=== PATIENT | female | born 1975 | race Caucasian/White ===

== ENCOUNTER 2021-03-28 04:43 | Inpatient (IN) ==
[2021-03-28 05:49] LABS: Basophils % 0.2 %; Hematocrit 40.9 % (35.3-44.9); Hemoglobin 13.5 g/dL (11.5-15.4); Immature Granulocytes % 0.6 % (0-4); Lymphocytes # 0.8 K/mcL (0.6-4.6); Lymphocytes % 17.2 %; Mean Corpuscular Hemoglobin 30.9 pg (28.0-33.3); Mean Corpuscular Volume 93.6 fL (83.0-100.0); Monocytes # 0.4 K/mcL (0.0-1.3); Monocytes % 8.8 %; Neutrophils # 3.6 K/mcL (1.6-8.9); Platelet Count 186 K/mcL (140-400); Red Blood Count 4.37 M/mcL (3.82-4.97); Segmented Neutrophils % 73.2 %; White Blood Count 4.9 K/mcL (4.3-11.1)
[2021-03-28 06:04] LABS: BUN/Creatinine Ratio 13 (6-26); Blood Urea Nitrogen 12 mg/dL (6-20); Carbon Dioxide 24 mEq/L (23-29); Chloride 102 mEq/L (98-107); Glucose 124 mg/dL (70-105); Osmolality,Calculated 287 (280-300); Potassium 3.3 mEq/L (3.5-5.1); Sodium 138 mEq/L (136-145); eGFR For African Americans > 60 (> 60); eGFR For Non-African Americans > 60 (> 60)
[2021-03-28 06:05] LABS: Troponin I < 0.03 ng/mL (< 0.04)
[2021-03-28] MEDS ORDERED: Ondansetron 4 MG/2 ML VIAL IVP PRN (07:49)
[2021-03-28] MEDS ORDERED: Acetaminophen 325 MG TABLET PO PRN (07:49)
[2021-03-28] MEDS ORDERED: Naloxone 0.4 MG/ML INJ IVP PRN (07:49)
[2021-03-28] MEDS ORDERED: Dextrose Gel 15 GM/37.5 ML TUBE PO PRN ×2 (08:54)
[2021-03-28] MEDS ORDERED: D5% in Water 1,000 ML IVC PRN (08:54)
[2021-03-28] MEDS ORDERED: *HR* Dextrose 50 % in Water (Syg) 50 ML SYRINGE IVP PRN (08:54)
[2021-03-28] MEDS ORDERED: Furosemide 40 MG/4 ML VIAL IVP SCH (09:00)
[2021-03-28 09:45] LABS: Albumin 3.8 g/dL (3.5-5.7); Albumin/Globulin Ratio 1.1 (1.1-2.2); Bilirubin,Direct 0.1 mg/dL (0.0-0.2); Bilirubin,Indirect 0.3 mg/dL (0.0-1.0); Bilirubin,Total 0.4 mg/dL (0.3-1.0); Globulin 3.6 g/dL (2.4-3.5); Total Protein 7.4 g/dL (6.4-8.9)
[2021-03-28] MEDS: Loratadine 10 MG TABLET PO SCH (10:20)
[2021-03-28] MEDS: Dexamethasone Sodium Phos/PF 10 MG/ML VIAL IVP SCH (10:21)
[2021-03-28] MEDS: Cholecalciferol (D-3) 1,000 UNIT (25MCG) TABLET PO SCH (10:40)
[2021-03-28] MEDS: Ipratropium 1 PUFF INHALER IH SCH ×3 (11:34→20:13)
[2021-03-28] MEDS: Insulin LISPRO 300 UNITS/3 ML VIAL SUBQ SCH ×3 (14:52→21:36)
[2021-03-28] MEDS ORDERED: Remdesivir 200 MG in 0.9 % Sodium Chloride 100 ML IVPB ONE (16:00)
[2021-03-28] MEDS ORDERED: tiZANidine 4 MG TABLET PO SCH (21:00)
[2021-03-29] MEDS ORDERED: 0.9 % Sodium Chloride 250 ML IVC ONE ×2 (01:20→04:01)
[2021-03-29] MEDS: Ipratropium 1 PUFF INHALER IH SCH ×4 (03:31→21:28)
[2021-03-29 05:14] LABS: Basophils % 0.3 %; Hemoglobin 12.9 g/dL (11.5-15.4); Immature Granulocytes % 0.8 % (0-4); Lymphocytes # 0.6 K/mcL (0.6-4.6); Lymphocytes % 16.4 %; Mean Corpuscular HGB Conc 33.1 g/dL (31.6-35.5); Mean Corpuscular Hemoglobin 31.4 pg (28.0-33.3); Mean Corpuscular Volume 94.9 fL (83.0-100.0); Mean Platelet Volume 10.6 fL (9.4-12.4); Monocytes # 0.4 K/mcL (0.0-1.3); Monocytes % 11.4 %; Neutrophils # 2.6 K/mcL (1.6-8.9); Platelet Count 205 K/mcL (140-400); Red Blood Count 4.11 M/mcL (3.82-4.97); Red Cell Distribution Width 12.4 % (11.5-14.5); Segmented Neutrophils % 71.1 %; White Blood Count 3.6 K/mcL (4.3-11.1)
[2021-03-29 05:27] LABS: Calcium 8.4 mg/dL (8.6-10.3); Magnesium 2.4 mg/dL (1.6-2.6); Potassium 3.8 mEq/L (3.5-5.1)
[2021-03-29 05:29] LABS: Albumin 3.9 g/dL (3.5-5.7); Albumin/Globulin Ratio 1.2 (1.1-2.2); Bilirubin,Direct 0.1 mg/dL (0.0-0.2); Bilirubin,Indirect 0.2 mg/dL (0.0-1.0); Bilirubin,Total 0.3 mg/dL (0.3-1.0); Globulin 3.2 g/dL (2.4-3.5); Total Protein 7.1 g/dL (6.4-8.9)
[2021-03-29 06:12] LABS: Estimated Average Glucose 140 mg/dl; Hemoglobin A1C 6.5 %
[2021-03-29] MEDS ORDERED: Pantoprazole 40 MG VIAL IVP SCH (09:00)
[2021-03-29] MEDS: *HR* Enoxaparin 40 MG/0.4 ML SYRINGE SQ SCH (10:39)
[2021-03-29] MEDS: Dexamethasone Sodium Phos/PF 10 MG/ML VIAL IVP SCH (10:40)
[2021-03-29] MEDS: Cholecalciferol (D-3) 1,000 UNIT (25MCG) TABLET PO SCH (10:40)
[2021-03-29] MEDS: BuPROPion XL (24 HR) 150 MG TABLET PO SCH (10:40)
[2021-03-29] MEDS: Ascorbic Acid 500 MG TABLET PO SCH (10:40)
[2021-03-29] MEDS: Loratadine 10 MG TABLET PO SCH (10:40)
[2021-03-29] MEDS: Insulin LISPRO 300 UNITS/3 ML VIAL SUBQ SCH ×4 (10:41→20:54)
[2021-03-29] MEDS ORDERED: Remdesivir 100 MG in 0.9 % Sodium Chloride 100 ML IVPB SCH (12:00)
[2021-03-29] MEDS: Famotidine 20 MG TABLET PO SCH (21:03)
[2021-03-30] MEDS: Ipratropium 1 PUFF INHALER IH SCH ×4 (03:39→20:58)
[2021-03-30 06:14] LABS: Albumin 4.1 g/dL (3.5-5.7); Albumin/Globulin Ratio 1.1 (1.1-2.2); Bilirubin,Direct 0.1 mg/dL (0.0-0.2); Bilirubin,Indirect 0.4 mg/dL (0.0-1.0); Bilirubin,Total 0.5 mg/dL (0.3-1.0); Globulin 3.7 g/dL (2.4-3.5); Total Protein 7.8 g/dL (6.4-8.9)
[2021-03-30] MEDS: Insulin LISPRO 300 UNITS/3 ML VIAL SUBQ SCH ×5 (08:06→21:19)
[2021-03-30] MEDS: *HR* Enoxaparin 40 MG/0.4 ML SYRINGE SQ SCH (08:10)
[2021-03-30] MEDS: Ascorbic Acid 500 MG TABLET PO SCH (08:11)
[2021-03-30] MEDS: BuPROPion XL (24 HR) 150 MG TABLET PO SCH (08:11)
[2021-03-30] MEDS: Dexamethasone Sodium Phos/PF 10 MG/ML VIAL IVP SCH (08:11)
[2021-03-30] MEDS: Famotidine 20 MG TABLET PO SCH ×2 (08:11→21:20)
[2021-03-30] MEDS: Cholecalciferol (D-3) 1,000 UNIT (25MCG) TABLET PO SCH (08:12)
[2021-03-30 10:19] LABS: Basophils % 0.1 %; Hematocrit 40.6 % (35.3-44.9); Hemoglobin 13.6 g/dL (11.5-15.4); Immature Granulocytes % 0.7 % (0-4); Lymphocytes # 0.4 K/mcL (0.6-4.6); Lymphocytes % 3.9 %; Mean Corpuscular HGB Conc 33.5 g/dL (31.6-35.5); Mean Corpuscular Hemoglobin 31.2 pg (28.0-33.3); Mean Corpuscular Volume 93.1 fL (83.0-100.0); Mean Platelet Volume 10.1 fL (9.4-12.4); Monocytes # 0.8 K/mcL (0.0-1.3); Monocytes % 6.7 %; Platelet Count 291 K/mcL (140-400); Red Blood Count 4.36 M/mcL (3.82-4.97); Red Cell Distribution Width 12.4 % (11.5-14.5); Segmented Neutrophils % 88.6 %; White Blood Count 11.3 K/mcL (4.3-11.1)
[2021-03-30 10:30] LABS: Fibrinogen 627 mg/dL (169-393)
[2021-03-30 10:31] LABS: D-Dimer 688 ng/mLFEU (0-500)
[2021-03-30 10:37] LABS: BUN/Creatinine Ratio 28 (6-26); Blood Urea Nitrogen 32 mg/dL (6-20); Carbon Dioxide 25 mEq/L (23-29); Chloride 104 mEq/L (98-107); Glucose 147 mg/dL (70-105); Osmolality,Calculated 304 (280-300); Potassium 3.5 mEq/L (3.5-5.1); Sodium 142 mEq/L (136-145); eGFR For African Americans > 60 (> 60); eGFR For Non-African Americans 51 (> 60)
[2021-03-30] MEDS ORDERED: *HR* LORazepam 0.5 MG TABLET PO PRN (11:53)
[2021-03-30] MEDS ORDERED: Ringers Solution, Lactated 1,000 ML IVC SCH ×2 (12:00→12:15)
[2021-03-30] MEDS ORDERED: Isovue-370 500 ML BOTTLE IVP ONE (12:02)
[2021-03-30] MEDS ORDERED: *HR* Metoprolol 5 MG/5 ML VIAL IVP PRN (20:32)
[2021-03-30] MEDS: tiZANidine 4 MG TABLET PO SCH (21:48)
[2021-03-31] MEDS: Ipratropium 1 PUFF INHALER IH SCH ×7 (05:00→23:25)
[2021-03-31 07:58] LABS: ABG Base Excess 2 mEq/L (-2 to 3); ABG HCO3 26 mEq/L (21-27); ABG Oxygen Saturation 94 % (95-98); ABG PCO2 38 mmHg (35-45); ABG PH 7.44 pH Units (7.32-7.45); ABG PO2 68 mmHg (85-104); ABG TCO2 27 mEq/L (20-26)
[2021-03-31] MEDS: Insulin LISPRO 300 UNITS/3 ML VIAL SUBQ SCH ×4 (08:19→21:23)
[2021-03-31] MEDS: *HR* Enoxaparin 40 MG/0.4 ML SYRINGE SQ SCH (08:24)
[2021-03-31] MEDS: Cholecalciferol (D-3) 1,000 UNIT (25MCG) TABLET PO SCH (08:24)
[2021-03-31] MEDS: Dexamethasone Sodium Phos/PF 10 MG/ML VIAL IVP SCH (08:24)
[2021-03-31] MEDS: Ascorbic Acid 500 MG TABLET PO SCH (08:24)
[2021-03-31] MEDS: Famotidine 20 MG TABLET PO SCH ×2 (08:25→21:23)
[2021-03-31] MEDS: BuPROPion XL (24 HR) 150 MG TABLET PO SCH (08:25)
[2021-03-31] MEDS: *HR* LORazepam 0.5 MG TABLET PO PRN ×2 (08:45→18:04)
[2021-03-31 12:35] LABS: Basophils % 0.1 %; Hematocrit 40.1 % (35.3-44.9); Immature Granulocytes % 0.7 % (0-4); Lymphocytes # 0.4 K/mcL (0.6-4.6); Lymphocytes % 2.7 %; Mean Corpuscular HGB Conc 32.4 g/dL (31.6-35.5); Mean Corpuscular Hemoglobin 30.9 pg (28.0-33.3); Mean Corpuscular Volume 95.2 fL (83.0-100.0); Mean Platelet Volume 9.9 fL (9.4-12.4); Monocytes # 0.6 K/mcL (0.0-1.3); Monocytes % 4.2 %; Neutrophils # 12.8 K/mcL (1.6-8.9); Platelet Count 283 K/mcL (140-400); Red Blood Count 4.21 M/mcL (3.82-4.97); Red Cell Distribution Width 12.7 % (11.5-14.5); Segmented Neutrophils % 92.3 %
[2021-03-31 12:37] LABS: White Blood Count 13.9 K/mcL (4.3-11.1)
[2021-03-31 12:51] LABS: Alanine Aminotransferase 12 Units/L (7-52); Albumin 3.7 g/dL (3.5-5.7); Alkaline Phosphatase 44 Units/L (34-104); Aspartate Amino Transferase 23 Units/L (13-39); BUN/Creatinine Ratio 31 (6-26); Bilirubin,Direct 0.1 mg/dL (0.0-0.2); Bilirubin,Indirect 0.3 mg/dL (0.0-1.0); Bilirubin,Total 0.4 mg/dL (0.3-1.0); Blood Urea Nitrogen 28 mg/dL (6-20); Calcium 8.8 mg/dL (8.6-10.3); Carbon Dioxide 26 mEq/L (23-29); Chloride 106 mEq/L (98-107); Globulin 3.7 g/dL (2.4-3.5); Glucose 154 mg/dL (70-105); Osmolality,Calculated 305 (280-300); Potassium 3.8 mEq/L (3.5-5.1); Sodium 143 mEq/L (136-145); Total Protein 7.4 g/dL (6.4-8.9); eGFR For African Americans > 60 (> 60); eGFR For Non-African Americans > 60 (> 60)
[2021-03-31] MEDS: Furosemide 20 MG/2 ML VIAL IVP SCH (15:36)
[2021-03-31 16:30] LABS: Ferritin 344 ng/mL (10-120)
[2021-03-31] MEDS: tiZANidine 4 MG TABLET PO SCH (21:23)
[2021-04-01 04:03] LABS: Basophils % 0.2 %; Hematocrit 36.5 % (35.3-44.9); Hemoglobin 12.2 g/dL (11.5-15.4); Immature Granulocytes % 0.8 % (0-4); Lymphocytes # 0.5 K/mcL (0.6-4.6); Lymphocytes % 4.1 %; Mean Corpuscular HGB Conc 33.4 g/dL (31.6-35.5); Mean Corpuscular Hemoglobin 31.9 pg (28.0-33.3); Mean Corpuscular Volume 95.3 fL (83.0-100.0); Mean Platelet Volume 9.7 fL (9.4-12.4); Monocytes # 0.5 K/mcL (0.0-1.3); Monocytes % 4.3 %; Neutrophils # 10.7 K/mcL (1.6-8.9); Platelet Count 287 K/mcL (140-400); Red Blood Count 3.83 M/mcL (3.82-4.97); Red Cell Distribution Width 12.4 % (11.5-14.5); Segmented Neutrophils % 90.6 %; White Blood Count 11.8 K/mcL (4.3-11.1)
[2021-04-01] MEDS: Ipratropium 1 PUFF INHALER IH SCH ×6 (04:11→23:06)
[2021-04-01 04:23] LABS: Alanine Aminotransferase 11 Units/L (7-52); Albumin 3.4 g/dL (3.5-5.7); Alkaline Phosphatase 42 Units/L (34-104); Aspartate Amino Transferase 17 Units/L (13-39); BUN/Creatinine Ratio 31 (6-26); Bilirubin,Total 0.4 mg/dL (0.3-1.0); Blood Urea Nitrogen 27 mg/dL (6-20); Calcium 8.7 mg/dL (8.6-10.3); Carbon Dioxide 28 mEq/L (23-29); Chloride 106 mEq/L (98-107); Globulin 3.3 g/dL (2.4-3.5); Glucose 172 mg/dL (70-105); Osmolality,Calculated 305 (280-300); Potassium 3.7 mEq/L (3.5-5.1); Sodium 143 mEq/L (136-145); Total Protein 6.7 g/dL (6.4-8.9); eGFR For African Americans > 60 (> 60); eGFR For Non-African Americans > 60 (> 60)
[2021-04-01] MEDS: *HR* Enoxaparin 40 MG/0.4 ML SYRINGE SQ SCH (05:21)
[2021-04-01] MEDS: Insulin LISPRO 300 UNITS/3 ML VIAL SUBQ SCH ×4 (09:36→20:58)
[2021-04-01] MEDS: Dexamethasone Sodium Phos/PF 10 MG/ML VIAL IVP SCH (09:38)
[2021-04-01] MEDS: Furosemide 20 MG/2 ML VIAL IVP SCH (09:38)
[2021-04-01] MEDS: Famotidine 20 MG TABLET PO SCH ×2 (09:39→21:14)
[2021-04-01] MEDS: Cholecalciferol (D-3) 1,000 UNIT (25MCG) TABLET PO SCH (09:39)
[2021-04-01] MEDS: Ascorbic Acid 500 MG TABLET PO SCH (09:39)
[2021-04-01] MEDS: BuPROPion XL (24 HR) 150 MG TABLET PO SCH (09:39)
[2021-04-01] MEDS: GuaiFENesin/Codeine Oral Soln 5 ML UDC PO PRN ×2 (14:29→21:14)
[2021-04-01] MEDS ORDERED: Dexmedetomidine HCl 400 MCG/100 ML MLS IVC SCH (15:15)
[2021-04-01] MEDS ORDERED: Benzonatate 100 MG CAPSULE PO PRN (15:57)
[2021-04-01] MEDS ORDERED: Morphine Sulfate 2 MG/ML SYRINGE IVP ONE ×2 (17:21→22:40)
[2021-04-01] MEDS: tiZANidine 4 MG TABLET PO PRN (21:13)
[2021-04-02 02:14] LABS: Basophils % 0.2 %; Hematocrit 37.8 % (35.3-44.9); Hemoglobin 12.4 g/dL (11.5-15.4); Lymphocytes # 0.5 K/mcL (0.6-4.6); Lymphocytes % 4.8 %; Mean Corpuscular HGB Conc 32.8 g/dL (31.6-35.5); Mean Corpuscular Hemoglobin 31.6 pg (28.0-33.3); Mean Corpuscular Volume 96.2 fL (83.0-100.0); Mean Platelet Volume 9.7 fL (9.4-12.4); Monocytes # 0.6 K/mcL (0.0-1.3); Monocytes % 5.2 %; Neutrophils # 9.9 K/mcL (1.6-8.9); Platelet Count 355 K/mcL (140-400); Red Blood Count 3.93 M/mcL (3.82-4.97); Red Cell Distribution Width 12.1 % (11.5-14.5); Segmented Neutrophils % 88.8 %; White Blood Count 11.1 K/mcL (4.3-11.1)
[2021-04-02 02:23] LABS: Fibrinogen 594 mg/dL (169-393)
[2021-04-02 02:24] LABS: D-Dimer 716 ng/mLFEU (0-500)
[2021-04-02 02:31] LABS: BUN/Creatinine Ratio 34 (6-26); Blood Urea Nitrogen 26 mg/dL (6-20); C-Reactive Protein 27 mg/L (Less than 10); Calcium 8.8 mg/dL (8.6-10.3); Carbon Dioxide 28 mEq/L (23-29); Chloride 105 mEq/L (98-107); Glucose 144 mg/dL (70-105); Osmolality,Calculated 301 (280-300); Potassium 3.6 mEq/L (3.5-5.1); Sodium 142 mEq/L (136-145); eGFR For African Americans > 60 (> 60); eGFR For Non-African Americans > 60 (> 60)
[2021-04-02] MEDS: Ipratropium 1 PUFF INHALER IH SCH ×5 (03:24→19:59)
[2021-04-02] MEDS: Insulin LISPRO 300 UNITS/3 ML VIAL SUBQ SCH ×4 (09:38→19:39)
[2021-04-02] MEDS: Dexamethasone Sodium Phos/PF 10 MG/ML VIAL IVP SCH (09:48)
[2021-04-02] MEDS: Furosemide 20 MG/2 ML VIAL IVP SCH (09:48)
[2021-04-02] MEDS: BuPROPion XL (24 HR) 150 MG TABLET PO SCH (09:49)
[2021-04-02] MEDS: Ascorbic Acid 500 MG TABLET PO SCH (09:49)
[2021-04-02] MEDS: *HR* Enoxaparin 40 MG/0.4 ML SYRINGE SQ SCH (09:49)
[2021-04-02] MEDS: Famotidine 20 MG TABLET PO SCH ×2 (09:49→19:51)
[2021-04-02] MEDS: Cholecalciferol (D-3) 1,000 UNIT (25MCG) TABLET PO SCH (09:49)
[2021-04-02] MEDS: Dexmedetomidine HCl 400 MCG/100 ML MLS IVC SCH ×2 (10:01→16:40)
[2021-04-02] MEDS ORDERED: Lidocaine -MPF 1% 5 ML AMPUL INFILT ONE (10:50)
[2021-04-03] MEDS: Ipratropium 1 PUFF INHALER IH SCH ×7 (00:14→23:47)
[2021-04-03] MEDS: Dexmedetomidine HCl 400 MCG/100 ML MLS IVC SCH ×2 (04:22→18:07)
[2021-04-03 04:29] LABS: Basophils % 0.1 %; Hematocrit 38.9 % (35.3-44.9); Hemoglobin 12.6 g/dL (11.5-15.4); Immature Granulocytes % 1.1 % (0-4); Lymphocytes # 0.5 K/mcL (0.6-4.6); Lymphocytes % 4.4 %; Mean Corpuscular HGB Conc 32.4 g/dL (31.6-35.5); Mean Corpuscular Volume 95.6 fL (83.0-100.0); Mean Platelet Volume 9.6 fL (9.4-12.4); Monocytes # 0.7 K/mcL (0.0-1.3); Monocytes % 5.7 %; Neutrophils # 10.1 K/mcL (1.6-8.9); Platelet Count 387 K/mcL (140-400); Red Blood Count 4.07 M/mcL (3.82-4.97); Red Cell Distribution Width 12.1 % (11.5-14.5); Segmented Neutrophils % 88.7 %; White Blood Count 11.4 K/mcL (4.3-11.1)
[2021-04-03 04:37] LABS: Fibrinogen 594 mg/dL (169-393)
[2021-04-03 04:39] LABS: D-Dimer 747 ng/mLFEU (0-500)
[2021-04-03 04:50] LABS: Alanine Aminotransferase 10 Units/L (7-52); Albumin 3.5 g/dL (3.5-5.7); Alkaline Phosphatase 40 Units/L (34-104); Aspartate Amino Transferase 11 Units/L (13-39); BUN/Creatinine Ratio 38 (6-26); Bilirubin,Total 0.5 mg/dL (0.3-1.0); Blood Urea Nitrogen 33 mg/dL (6-20); Carbon Dioxide 30 mEq/L (23-29); Chloride 104 mEq/L (98-107); Globulin 3.6 g/dL (2.4-3.5); Glucose 153 mg/dL (70-105); Osmolality,Calculated 308 (280-300); Potassium 3.9 mEq/L (3.5-5.1); Sodium 144 mEq/L (136-145); Total Protein 7.1 g/dL (6.4-8.9); eGFR For African Americans > 60 (> 60); eGFR For Non-African Americans > 60 (> 60)
[2021-04-03] MEDS: Insulin LISPRO 300 UNITS/3 ML VIAL SUBQ SCH ×4 (07:54→21:21)
[2021-04-03] MEDS: Cholecalciferol (D-3) 1,000 UNIT (25MCG) TABLET PO SCH (07:57)
[2021-04-03] MEDS: BuPROPion XL (24 HR) 150 MG TABLET PO SCH (07:57)
[2021-04-03] MEDS: Ascorbic Acid 500 MG TABLET PO SCH (07:58)
[2021-04-03] MEDS: Famotidine 20 MG TABLET PO SCH (07:58)
[2021-04-03] MEDS: Dexamethasone Sodium Phos/PF 10 MG/ML VIAL IVP SCH (07:59)
[2021-04-03] MEDS: *HR* Enoxaparin 40 MG/0.4 ML SYRINGE SQ SCH (08:00)
[2021-04-03] MEDS: Furosemide 20 MG/2 ML VIAL IVP SCH (08:00)
[2021-04-03] MEDS ORDERED: *HR* Heparin 5,000 UNIT/ML VIAL IVP PRN ×2 (17:28)
[2021-04-03] MEDS ORDERED: *HR* Heparin 5,000 UNIT/ML VIAL IVP ONE (17:28)
[2021-04-03] MEDS: tiZANidine 4 MG TABLET PO PRN (19:50)
[2021-04-03] MEDS: GuaiFENesin/Codeine Oral Soln 5 ML UDC PO PRN (21:21)
[2021-04-04] MEDS: Ipratropium 1 PUFF INHALER IH SCH ×5 (04:04→19:55)
[2021-04-04 05:26] LABS: Basophils % 0.2 %; Hematocrit 38.9 % (35.3-44.9); Hemoglobin 12.9 g/dL (11.5-15.4); Lymphocytes # 0.6 K/mcL (0.6-4.6); Lymphocytes % 4.1 %; Mean Corpuscular HGB Conc 33.2 g/dL (31.6-35.5); Mean Corpuscular Hemoglobin 31.2 pg (28.0-33.3); Mean Corpuscular Volume 94.2 fL (83.0-100.0); Monocytes # 0.9 K/mcL (0.0-1.3); Monocytes % 6.6 %; Neutrophils # 12.6 K/mcL (1.6-8.9); Platelet Count 460 K/mcL (140-400); Red Blood Count 4.13 M/mcL (3.82-4.97); Red Cell Distribution Width 11.7 % (11.5-14.5); Segmented Neutrophils % 88.1 %; White Blood Count 14.3 K/mcL (4.3-11.1)
[2021-04-04 05:46] LABS: BUN/Creatinine Ratio 41 (6-26); Blood Urea Nitrogen 31 mg/dL (6-20); Carbon Dioxide 32 mEq/L (23-29); Chloride 101 mEq/L (98-107); Glucose 117 mg/dL (70-105); Osmolality,Calculated 304 (280-300); Potassium 3.4 mEq/L (3.5-5.1); Sodium 143 mEq/L (136-145); eGFR For African Americans > 60 (> 60); eGFR For Non-African Americans > 60 (> 60)
[2021-04-04] MEDS ORDERED: *HR* Enoxaparin 40 MG/0.4 ML SYRINGE SQ SCH (06:00)
[2021-04-04] MEDS: Insulin LISPRO 300 UNITS/3 ML VIAL SUBQ SCH ×4 (07:53→21:04)
[2021-04-04] MEDS: Furosemide 20 MG/2 ML VIAL IVP SCH ×2 (07:53→10:22)
[2021-04-04] MEDS: Dexamethasone Sodium Phos/PF 10 MG/ML VIAL IVP SCH (07:53)
[2021-04-04] MEDS: BuPROPion XL (24 HR) 150 MG TABLET PO SCH ×2 (07:54→10:23)
[2021-04-04] MEDS ORDERED: *HR* Dextrose 50 % in Water (Syg) 50 ML SYRINGE IVP PRN (08:55)
[2021-04-04] MEDS ORDERED: Acetaminophen 325 MG TABLET PO PRN (08:55)
[2021-04-04] MEDS ORDERED: D5% in Water 1,000 ML IVC PRN (08:55)
[2021-04-04] MEDS ORDERED: Dextrose Gel 15 GM/37.5 ML TUBE PO PRN ×2 (08:55)
[2021-04-04] MEDS ORDERED: Naloxone 0.4 MG/ML INJ IVP PRN (08:55)
[2021-04-04] MEDS ORDERED: Pantoprazole 40 MG VIAL IVP SCH (09:00)
[2021-04-04] MEDS ORDERED: Dexamethasone Sodium Phos/PF 10 MG/ML VIAL IVP SCH (09:00)
[2021-04-04] MEDS ORDERED: Cholecalciferol (D-3) 1,000 UNIT (25MCG) TABLET PO SCH (09:00)
[2021-04-04] MEDS: Cholecalciferol (D-3) 1,000 UNIT (25MCG) TABLET PO SCH (10:23)
[2021-04-04] MEDS: Pantoprazole 40 MG VIAL IVP SCH (10:23)
[2021-04-04] MEDS: GuaiFENesin/Codeine Oral Soln 5 ML UDC PO PRN ×2 (12:29→21:03)
[2021-04-04] MEDS: Dexmedetomidine HCl 400 MCG/100 ML MLS IVC SCH ×2 (14:59→15:00)
[2021-04-04] MEDS: *HR* LORazepam 0.5 MG TABLET PO PRN (21:03)
[2021-04-04] MEDS: Benzonatate 100 MG CAPSULE PO PRN (21:06)
[2021-04-04] MEDS: tiZANidine 4 MG TABLET PO PRN (21:06)
[2021-04-05] MEDS: Ipratropium 1 PUFF INHALER IH SCH ×7 (00:33→23:28)
[2021-04-05 05:19] LABS: VBG Ionized Calcium 1.18 mmol/L (1.15-1.35)
[2021-04-05 05:24] LABS: Alanine Aminotransferase 8 Units/L (7-52); Albumin 3.2 g/dL (3.5-5.7); Albumin/Globulin Ratio 0.9 (1.1-2.2); Alkaline Phosphatase 36 Units/L (34-104); Aspartate Amino Transferase 10 Units/L (13-39); Bilirubin,Direct 0.1 mg/dL (0.0-0.2); Bilirubin,Indirect 0.5 mg/dL (0.0-1.0); Bilirubin,Total 0.6 mg/dL (0.3-1.0); C-Reactive Protein 22 mg/L (Less than 10); Globulin 3.4 g/dL (2.4-3.5); Magnesium 2.2 mg/dL (1.6-2.6); Phosphorous 3.2 mg/dL (2.7-4.5); Total Protein 6.6 g/dL (6.4-8.9)
[2021-04-05] MEDS: *HR* Enoxaparin 40 MG/0.4 ML SYRINGE SQ SCH (06:15)
[2021-04-05 07:55] LABS: BUN/Creatinine Ratio 36 (6-26); Blood Urea Nitrogen 26 mg/dL (6-20); Calcium 8.8 mg/dL (8.6-10.3); Carbon Dioxide 31 mEq/L (23-29); Chloride 100 mEq/L (98-107); Glucose 116 mg/dL (70-105); Osmolality,Calculated 298 (280-300); Potassium 3.4 mEq/L (3.5-5.1); Sodium 141 mEq/L (136-145); eGFR For African Americans > 60 (> 60); eGFR For Non-African Americans > 60 (> 60)
[2021-04-05 08:07] LABS: Basophils % 0.2 %; Eosinophils % 0.1 %; Hematocrit 39.7 % (35.3-44.9); Hemoglobin 13.2 g/dL (11.5-15.4); Immature Granulocytes % 1.3 % (0-4); Lymphocytes # 0.6 K/mcL (0.6-4.6); Lymphocytes % 4.1 %; Mean Corpuscular HGB Conc 33.2 g/dL (31.6-35.5); Mean Corpuscular Hemoglobin 30.9 pg (28.0-33.3); Mean Platelet Volume 9.8 fL (9.4-12.4); Monocytes # 0.7 K/mcL (0.0-1.3); Monocytes % 4.3 %; Neutrophils # 13.5 K/mcL (1.6-8.9); Platelet Count 484 K/mcL (140-400); Red Blood Count 4.27 M/mcL (3.82-4.97); Red Cell Distribution Width 11.8 % (11.5-14.5)
[2021-04-05] MEDS: Dexmedetomidine HCl 400 MCG/100 ML MLS IVC SCH ×2 (08:22→17:16)
[2021-04-05] MEDS: Insulin LISPRO 300 UNITS/3 ML VIAL SUBQ SCH ×4 (08:22→19:56)
[2021-04-05] MEDS: Pantoprazole 40 MG VIAL IVP SCH (08:50)
[2021-04-05] MEDS: Dexamethasone Sodium Phos/PF 10 MG/ML VIAL IVP SCH (08:51)
[2021-04-05] MEDS: BuPROPion XL (24 HR) 150 MG TABLET PO SCH (08:51)
[2021-04-05] MEDS: Cholecalciferol (D-3) 1,000 UNIT (25MCG) TABLET PO SCH (08:51)
[2021-04-05] MEDS: Furosemide 20 MG/2 ML VIAL IVP SCH (08:52)
[2021-04-05] MEDS ORDERED: Dexamethasone Sodium Phos/PF 10 MG/ML VIAL IVP SCH (09:00)
[2021-04-05] MEDS: GuaiFENesin/Codeine Oral Soln 5 ML UDC PO PRN (19:55)
[2021-04-05] MEDS: tiZANidine 4 MG TABLET PO PRN (19:56)
[2021-04-06] MEDS: Ipratropium 1 PUFF INHALER IH SCH ×5 (04:45→21:32)
[2021-04-06] MEDS: Dexmedetomidine HCl 400 MCG/100 ML MLS IVC SCH ×2 (04:54→15:37)
[2021-04-06] MEDS: *HR* Enoxaparin 40 MG/0.4 ML SYRINGE SQ SCH (04:55)
[2021-04-06 05:33] LABS: VBG Ionized Calcium 1.12 mmol/L (1.15-1.35)
[2021-04-06 05:36] LABS: Basophils % 0.2 %; Eosinophils % 0.1 %; Hematocrit 40.8 % (35.3-44.9); Hemoglobin 13.8 g/dL (11.5-15.4); Immature Granulocytes % 1.3 % (0-4); Lymphocytes # 0.6 K/mcL (0.6-4.6); Lymphocytes % 3.7 %; Mean Corpuscular HGB Conc 33.8 g/dL (31.6-35.5); Mean Corpuscular Hemoglobin 31.5 pg (28.0-33.3); Mean Corpuscular Volume 93.2 fL (83.0-100.0); Mean Platelet Volume 10.1 fL (9.4-12.4); Monocytes # 0.5 K/mcL (0.0-1.3); Monocytes % 3.6 %; Neutrophils # 13.8 K/mcL (1.6-8.9); Platelet Count 456 K/mcL (140-400); Red Blood Count 4.38 M/mcL (3.82-4.97); Red Cell Distribution Width 11.7 % (11.5-14.5); Segmented Neutrophils % 91.1 %; White Blood Count 15.2 K/mcL (4.3-11.1)
[2021-04-06 05:44] LABS: Albumin 3.3 g/dL (3.5-5.7); Albumin/Globulin Ratio 0.9 (1.1-2.2); Bilirubin,Direct 0.1 mg/dL (0.0-0.2); Bilirubin,Indirect 0.5 mg/dL (0.0-1.0); Bilirubin,Total 0.6 mg/dL (0.3-1.0); Globulin 3.6 g/dL (2.4-3.5); Magnesium 2.2 mg/dL (1.6-2.6); Phosphorous 3.2 mg/dL (2.7-4.5); Total Protein 6.9 g/dL (6.4-8.9)
[2021-04-06 05:46] LABS: BUN/Creatinine Ratio 32 (6-26); Blood Urea Nitrogen 25 mg/dL (6-20); Calcium 8.8 mg/dL (8.6-10.3); Carbon Dioxide 33 mEq/L (23-29); Chloride 97 mEq/L (98-107); Glucose 116 mg/dL (70-105); Osmolality,Calculated 293 (280-300); Potassium 3.4 mEq/L (3.5-5.1); Sodium 139 mEq/L (136-145); eGFR For African Americans > 60 (> 60); eGFR For Non-African Americans > 60 (> 60)
[2021-04-06] MEDS: Insulin LISPRO 300 UNITS/3 ML VIAL SUBQ SCH ×4 (08:46→22:04)
[2021-04-06] MEDS: Furosemide 20 MG/2 ML VIAL IVP SCH (08:49)
[2021-04-06] MEDS: BuPROPion XL (24 HR) 150 MG TABLET PO SCH (08:50)
[2021-04-06] MEDS: Cholecalciferol (D-3) 1,000 UNIT (25MCG) TABLET PO SCH (08:50)
[2021-04-06] MEDS: Dexamethasone Sodium Phos/PF 10 MG/ML VIAL IVP SCH (08:50)
[2021-04-06] MEDS: Pantoprazole 40 MG VIAL IVP SCH (08:50)
[2021-04-06] MEDS: GuaiFENesin/Codeine Oral Soln 5 ML UDC PO PRN ×2 (08:51→21:44)
[2021-04-06] MEDS ORDERED: Potassium Chloride Elixir 20 MEQ/15 ML UDC PO ONE (10:44)
[2021-04-06] MEDS: *HR* Enoxaparin 60 MG/0.6 ML SYRINGE SQ SCH (21:43)
[2021-04-06] MEDS: tiZANidine 4 MG TABLET PO PRN (21:43)
[2021-04-07] MEDS: Ipratropium 1 PUFF INHALER IH SCH ×7 (00:05→23:13)
[2021-04-07] MEDS: Dexmedetomidine HCl 400 MCG/100 ML MLS IVC SCH ×4 (00:39→20:37)
[2021-04-07 04:41] LABS: Basophils % 0.2 %; Eosinophils # 0.1 K/mcL (0.0-0.6); Eosinophils % 0.3 %; Hematocrit 41.4 % (35.3-44.9); Hemoglobin 13.5 g/dL (11.5-15.4); Immature Granulocytes % 1.2 % (0-4); Lymphocytes # 0.8 K/mcL (0.6-4.6); Lymphocytes % 4.8 %; Mean Corpuscular HGB Conc 32.6 g/dL (31.6-35.5); Mean Corpuscular Hemoglobin 30.5 pg (28.0-33.3); Mean Corpuscular Volume 93.7 fL (83.0-100.0); Monocytes # 0.5 K/mcL (0.0-1.3); Platelet Count 323 K/mcL (140-400); Red Blood Count 4.42 M/mcL (3.82-4.97); Red Cell Distribution Width 11.7 % (11.5-14.5); Segmented Neutrophils % 90.5 %; White Blood Count 16.5 K/mcL (4.3-11.1)
[2021-04-07 04:46] LABS: VBG Ionized Calcium 1.12 mmol/L (1.15-1.35)
[2021-04-07 05:24] LABS: BUN/Creatinine Ratio 31 (6-26); Blood Urea Nitrogen 22 mg/dL (6-20); Calcium 8.5 mg/dL (8.6-10.3); Carbon Dioxide 32 mEq/L (23-29); Chloride 97 mEq/L (98-107); Glucose 120 mg/dL (70-105); Osmolality,Calculated 291 (280-300); Potassium 3.7 mEq/L (3.5-5.1); Sodium 138 mEq/L (136-145); eGFR For African Americans > 60 (> 60); eGFR For Non-African Americans > 60 (> 60)
[2021-04-07 06:47] LABS: Alanine Aminotransferase 9 Units/L (7-52); Albumin 3.2 g/dL (3.5-5.7); Albumin/Globulin Ratio 0.9 (1.1-2.2); Alkaline Phosphatase 43 Units/L (34-104); Aspartate Amino Transferase 16 Units/L (13-39); Bilirubin,Direct 0.1 mg/dL (0.0-0.2); Bilirubin,Indirect 0.5 mg/dL (0.0-1.0); Bilirubin,Total 0.6 mg/dL (0.3-1.0); Globulin 3.5 g/dL (2.4-3.5); Magnesium 2.2 mg/dL (1.6-2.6); Phosphorous 2.9 mg/dL (2.7-4.5); Total Protein 6.7 g/dL (6.4-8.9)
[2021-04-07] MEDS: Dexamethasone Sodium Phos/PF 10 MG/ML VIAL IVP SCH (07:51)
[2021-04-07] MEDS: Cholecalciferol (D-3) 1,000 UNIT (25MCG) TABLET PO SCH (07:55)
[2021-04-07] MEDS: Furosemide 40 MG/4 ML VIAL IVP SCH (07:55)
[2021-04-07] MEDS: BuPROPion XL (24 HR) 150 MG TABLET PO SCH (07:55)
[2021-04-07] MEDS: *HR* Enoxaparin 60 MG/0.6 ML SYRINGE SQ SCH ×2 (07:56→20:31)
[2021-04-07] MEDS: Pantoprazole 40 MG VIAL IVP SCH (07:57)
[2021-04-07] MEDS: Insulin LISPRO 300 UNITS/3 ML VIAL SUBQ SCH ×4 (08:14→20:32)
[2021-04-07 11:28] LABS: C-Reactive Protein 85 mg/L (Less than 10)
[2021-04-07] MEDS: GuaiFENesin/Codeine Oral Soln 5 ML UDC PO PRN ×2 (14:39→20:31)
[2021-04-07] MEDS: tiZANidine 4 MG TABLET PO PRN (20:31)
[2021-04-08] MEDS: Dexmedetomidine HCl 400 MCG/100 ML MLS IVC SCH ×5 (01:09→21:10)
[2021-04-08] MEDS: Ipratropium 1 PUFF INHALER IH SCH ×4 (03:39→20:33)
[2021-04-08] MEDS: Insulin LISPRO 300 UNITS/3 ML VIAL SUBQ SCH ×4 (07:37→20:21)
[2021-04-08] MEDS: Pantoprazole 40 MG VIAL IVP SCH (07:59)
[2021-04-08] MEDS: Furosemide 40 MG/4 ML VIAL IVP SCH (07:59)
[2021-04-08] MEDS: Dexamethasone Sodium Phos/PF 10 MG/ML VIAL IVP SCH (07:59)
[2021-04-08] MEDS: *HR* Enoxaparin 60 MG/0.6 ML SYRINGE SQ SCH ×2 (07:59→20:25)
[2021-04-08] MEDS: BuPROPion XL (24 HR) 150 MG TABLET PO SCH ×2 (08:00→08:49)
[2021-04-08] MEDS: Cholecalciferol (D-3) 1,000 UNIT (25MCG) TABLET PO SCH ×2 (08:00→08:49)
[2021-04-08 08:28] LABS: Basophils % 0.2 %; Eosinophils # 0.1 K/mcL (0.0-0.6); Eosinophils % 0.6 %; Hematocrit 40.7 % (35.3-44.9); Immature Granulocytes % 0.9 % (0-4); Lymphocytes # 0.8 K/mcL (0.6-4.6); Lymphocytes % 4.4 %; Mean Corpuscular HGB Conc 34.4 g/dL (31.6-35.5); Mean Corpuscular Hemoglobin 31.6 pg (28.0-33.3); Mean Corpuscular Volume 91.9 fL (83.0-100.0); Mean Platelet Volume 10.3 fL (9.4-12.4); Monocytes # 0.6 K/mcL (0.0-1.3); Monocytes % 3.5 %; Neutrophils # 16.3 K/mcL (1.6-8.9); Platelet Count 322 K/mcL (140-400); Red Blood Count 4.43 M/mcL (3.82-4.97); Red Cell Distribution Width 11.8 % (11.5-14.5); Segmented Neutrophils % 90.4 %
[2021-04-08 08:50] LABS: Alanine Aminotransferase 9 Units/L (7-52); Albumin 3.3 g/dL (3.5-5.7); Albumin/Globulin Ratio 0.9 (1.1-2.2); Alkaline Phosphatase 47 Units/L (34-104); Aspartate Amino Transferase 16 Units/L (13-39); BUN/Creatinine Ratio 27 (6-26); Bilirubin,Direct 0.1 mg/dL (0.0-0.2); Bilirubin,Indirect 0.4 mg/dL (0.0-1.0); Bilirubin,Total 0.5 mg/dL (0.3-1.0); Blood Urea Nitrogen 19 mg/dL (6-20); Calcium 9.1 mg/dL (8.6-10.3); Carbon Dioxide 31 mEq/L (23-29); Chloride 94 mEq/L (98-107); Globulin 3.6 g/dL (2.4-3.5); Glucose 130 mg/dL (70-105); Magnesium 2.1 mg/dL (1.6-2.6); Osmolality,Calculated 284 (280-300); Phosphorous 3.6 mg/dL (2.7-4.5); Potassium 3.5 mEq/L (3.5-5.1); Sodium 135 mEq/L (136-145); Total Protein 6.9 g/dL (6.4-8.9); eGFR For African Americans > 60 (> 60); eGFR For Non-African Americans > 60 (> 60)
[2021-04-08 13:10] LABS: C-Reactive Protein 81 mg/L (Less than 10)
[2021-04-08] MEDS: tiZANidine 4 MG TABLET PO PRN (20:25)
[2021-04-08] MEDS: GuaiFENesin/Codeine Oral Soln 5 ML UDC PO PRN (20:25)
[2021-04-09] MEDS: Dexmedetomidine HCl 400 MCG/100 ML MLS IVC SCH ×4 (02:18→21:18)
[2021-04-09 03:45] LABS: Basophils % 0.1 %; Eosinophils % 0.1 %; Hematocrit 41.2 % (35.3-44.9); Hemoglobin 13.8 g/dL (11.5-15.4); Immature Granulocytes % 0.9 % (0-4); Lymphocytes # 0.7 K/mcL (0.6-4.6); Lymphocytes % 4.4 %; Mean Corpuscular HGB Conc 33.5 g/dL (31.6-35.5); Mean Corpuscular Hemoglobin 30.9 pg (28.0-33.3); Mean Corpuscular Volume 92.4 fL (83.0-100.0); Mean Platelet Volume 10.5 fL (9.4-12.4); Monocytes # 0.6 K/mcL (0.0-1.3); Monocytes % 3.4 %; Neutrophils # 14.6 K/mcL (1.6-8.9); Platelet Count 311 K/mcL (140-400); Red Blood Count 4.46 M/mcL (3.82-4.97); Red Cell Distribution Width 11.7 % (11.5-14.5); Segmented Neutrophils % 91.1 %
[2021-04-09 03:47] LABS: VBG Ionized Calcium 1.13 mmol/L (1.15-1.35)
[2021-04-09] MEDS: Ipratropium 1 PUFF INHALER IH SCH ×4 (04:11→19:48)
[2021-04-09 04:14] LABS: Albumin 3.2 g/dL (3.5-5.7); Albumin/Globulin Ratio 0.9 (1.1-2.2); Bilirubin,Direct 0.1 mg/dL (0.0-0.2); Bilirubin,Indirect 0.4 mg/dL (0.0-1.0); Bilirubin,Total 0.5 mg/dL (0.3-1.0); Globulin 3.6 g/dL (2.4-3.5); Magnesium 2.2 mg/dL (1.6-2.6); Phosphorous 3.9 mg/dL (2.7-4.5); Total Protein 6.8 g/dL (6.4-8.9)
[2021-04-09 04:16] LABS: BUN/Creatinine Ratio 34 (6-26); Blood Urea Nitrogen 23 mg/dL (6-20); Calcium 9.1 mg/dL (8.6-10.3); Carbon Dioxide 32 mEq/L (23-29); Chloride 95 mEq/L (98-107); Glucose 127 mg/dL (70-105); Osmolality,Calculated 289 (280-300); Potassium 3.6 mEq/L (3.5-5.1); Sodium 137 mEq/L (136-145); eGFR For African Americans > 60 (> 60); eGFR For Non-African Americans > 60 (> 60)
[2021-04-09] MEDS: Insulin LISPRO 300 UNITS/3 ML VIAL SUBQ SCH ×4 (08:43→20:22)
[2021-04-09] MEDS: Cholecalciferol (D-3) 1,000 UNIT (25MCG) TABLET PO SCH (08:54)
[2021-04-09] MEDS: BuPROPion XL (24 HR) 150 MG TABLET PO SCH (08:54)
[2021-04-09] MEDS: *HR* Enoxaparin 60 MG/0.6 ML SYRINGE SQ SCH ×2 (08:54→20:21)
[2021-04-09] MEDS: Dexamethasone Sodium Phos/PF 10 MG/ML VIAL IVP SCH (08:55)
[2021-04-09] MEDS: Pantoprazole 40 MG VIAL IVP SCH (08:56)
[2021-04-09] MEDS: Furosemide 40 MG/4 ML VIAL IVP SCH (08:56)
[2021-04-09] MEDS: GuaiFENesin/Codeine Oral Soln 5 ML UDC PO PRN ×2 (10:48→20:35)
[2021-04-09] MEDS ORDERED: Perflutren Lipid Microsphere 1.3 ML in 0.9 % Sodium Chloride 8.7 ML IVP PRN (16:12)
[2021-04-09] MEDS: Calcium Gluconate 1gm/50mL 1 GM/50 ML BAG IVPB SCH ×2 (17:24→18:36)
[2021-04-10] MEDS: Dexmedetomidine HCl 400 MCG/100 ML MLS IVC SCH ×4 (01:06→20:05)
[2021-04-10] MEDS: Ipratropium 1 PUFF INHALER IH SCH ×4 (04:04→21:53)
[2021-04-10 04:16] LABS: VBG Ionized Calcium 1.15 mmol/L (1.15-1.35)
[2021-04-10 04:19] LABS: Basophils % 0.2 %; Eosinophils % 0.1 %; Hemoglobin 13.5 g/dL (11.5-15.4); Immature Granulocytes % 0.9 % (0-4); Lymphocytes # 0.9 K/mcL (0.6-4.6); Lymphocytes % 4.4 %; Mean Corpuscular HGB Conc 33.8 g/dL (31.6-35.5); Mean Corpuscular Hemoglobin 31.6 pg (28.0-33.3); Mean Corpuscular Volume 93.7 fL (83.0-100.0); Monocytes # 0.9 K/mcL (0.0-1.3); Monocytes % 4.6 %; Neutrophils # 17.8 K/mcL (1.6-8.9); Platelet Count 334 K/mcL (140-400); Red Blood Count 4.27 M/mcL (3.82-4.97); Red Cell Distribution Width 11.9 % (11.5-14.5); Segmented Neutrophils % 89.8 %; White Blood Count 19.9 K/mcL (4.3-11.1)
[2021-04-10 04:26] LABS: BUN/Creatinine Ratio 34 (6-26); Blood Urea Nitrogen 27 mg/dL (6-20); Calcium 8.8 mg/dL (8.6-10.3); Carbon Dioxide 31 mEq/L (23-29); Chloride 97 mEq/L (98-107); Glucose 120 mg/dL (70-105); Osmolality,Calculated 290 (280-300); Potassium 3.7 mEq/L (3.5-5.1); Sodium 137 mEq/L (136-145); eGFR For African Americans > 60 (> 60); eGFR For Non-African Americans > 60 (> 60)
[2021-04-10 04:29] LABS: Albumin 3.1 g/dL (3.5-5.7); Albumin/Globulin Ratio 0.9 (1.1-2.2); Bilirubin,Direct 0.1 mg/dL (0.0-0.2); Bilirubin,Indirect 0.4 mg/dL (0.0-1.0); Bilirubin,Total 0.5 mg/dL (0.3-1.0); Globulin 3.4 g/dL (2.4-3.5); Phosphorous 2.9 mg/dL (2.7-4.5); Total Protein 6.5 g/dL (6.4-8.9)
[2021-04-10] MEDS: *HR* Enoxaparin 60 MG/0.6 ML SYRINGE SQ SCH ×2 (09:00→20:15)
[2021-04-10] MEDS: Pantoprazole 40 MG VIAL IVP SCH (09:01)
[2021-04-10] MEDS: Furosemide 40 MG/4 ML VIAL IVP SCH (09:01)
[2021-04-10] MEDS: BuPROPion XL (24 HR) 150 MG TABLET PO SCH (09:02)
[2021-04-10] MEDS: Cholecalciferol (D-3) 1,000 UNIT (25MCG) TABLET PO SCH (09:02)
[2021-04-10] MEDS: Insulin LISPRO 300 UNITS/3 ML VIAL SUBQ SCH ×4 (09:21→20:09)
[2021-04-10] MEDS: *HR* LORazepam 0.5 MG TABLET PO PRN ×2 (12:01→20:15)
[2021-04-10] MEDS: GuaiFENesin/Codeine Oral Soln 5 ML UDC PO PRN ×2 (12:01→20:15)
[2021-04-10] MEDS: tiZANidine 4 MG TABLET PO PRN (20:24)
[2021-04-11] MEDS: Dexmedetomidine HCl 400 MCG/100 ML MLS IVC SCH ×7 (01:08→22:50)
[2021-04-11] MEDS: Ipratropium 1 PUFF INHALER IH SCH ×4 (03:05→20:17)
[2021-04-11 04:35] LABS: VBG Ionized Calcium 1.05 mmol/L (1.15-1.35)
[2021-04-11 04:43] LABS: Basophils % 0.1 %; Eosinophils % 0.2 %; Hemoglobin 12.4 g/dL (11.5-15.4); Immature Granulocytes % 0.6 % (0-4); Lymphocytes # 0.7 K/mcL (0.6-4.6); Mean Corpuscular HGB Conc 33.5 g/dL (31.6-35.5); Mean Corpuscular Hemoglobin 31.3 pg (28.0-33.3); Mean Corpuscular Volume 93.4 fL (83.0-100.0); Mean Platelet Volume 11.3 fL (9.4-12.4); Monocytes # 0.7 K/mcL (0.0-1.3); Monocytes % 3.9 %; Neutrophils # 16.2 K/mcL (1.6-8.9); Platelet Count 240 K/mcL (140-400); Red Blood Count 3.96 M/mcL (3.82-4.97); Red Cell Distribution Width 11.9 % (11.5-14.5); Segmented Neutrophils % 91.2 %; White Blood Count 17.8 K/mcL (4.3-11.1)
[2021-04-11] MEDS ORDERED: Saline Nasal Spray 44 ML BOTTLE NS PRN (09:03)
[2021-04-11] MEDS: *HR* Enoxaparin 60 MG/0.6 ML SYRINGE SQ SCH ×2 (09:10→19:46)
[2021-04-11] MEDS: BuPROPion XL (24 HR) 150 MG TABLET PO SCH (09:10)
[2021-04-11] MEDS: Cholecalciferol (D-3) 1,000 UNIT (25MCG) TABLET PO SCH (09:10)
[2021-04-11] MEDS: Insulin LISPRO 300 UNITS/3 ML VIAL SUBQ SCH ×4 (09:11→19:44)
[2021-04-11] MEDS: Pantoprazole 40 MG VIAL IVP SCH (09:11)
[2021-04-11] MEDS: Furosemide 40 MG/4 ML VIAL IVP SCH (09:11)
[2021-04-11 11:47] LABS: Albumin 3.2 g/dL (3.5-5.7); Albumin/Globulin Ratio 0.9 (1.1-2.2); Bilirubin,Direct 0.2 mg/dL (0.0-0.2); Bilirubin,Indirect 0.6 mg/dL (0.0-1.0); Bilirubin,Total 0.8 mg/dL (0.3-1.0); Calcium 8.8 mg/dL (8.6-10.3); Globulin 3.6 g/dL (2.4-3.5); Phosphorous 3.1 mg/dL (2.7-4.5); Potassium 3.8 mEq/L (3.5-5.1); Total Protein 6.8 g/dL (6.4-8.9)
[2021-04-11] MEDS: Cefepime HCl 2,000 MG in 0.9 % Sodium Chloride Mini Bag 100 ML IVPB SCH (18:12)
[2021-04-11] MEDS: GuaiFENesin/Codeine Oral Soln 5 ML UDC PO PRN (19:54)
[2021-04-11] MEDS: tiZANidine 4 MG TABLET PO PRN (19:54)
[2021-04-11] MEDS ORDERED: tiZANidine 4 MG TABLET PO ONE (20:09)
[2021-04-12] MEDS: Dexmedetomidine HCl 400 MCG/100 ML MLS IVC SCH ×5 (03:00→21:48)
[2021-04-12] MEDS: Ipratropium/Albuterol Neb 3 ML IH SCH ×4 (03:42→21:29)
[2021-04-12 03:47] LABS: Basophils % 0.1 %; Eosinophils # 0.1 K/mcL (0.0-0.6); Eosinophils % 0.6 %; Hematocrit 37.3 % (35.3-44.9); Hemoglobin 12.7 g/dL (11.5-15.4); Immature Granulocytes % 0.7 % (0-4); Lymphocytes % 5.3 %; Mean Corpuscular Hemoglobin 31.5 pg (28.0-33.3); Mean Corpuscular Volume 92.6 fL (83.0-100.0); Mean Platelet Volume 10.9 fL (9.4-12.4); Monocytes # 0.6 K/mcL (0.0-1.3); Monocytes % 3.4 %; Neutrophils # 16.4 K/mcL (1.6-8.9); Platelet Count 239 K/mcL (140-400); Red Blood Count 4.03 M/mcL (3.82-4.97); Red Cell Distribution Width 11.8 % (11.5-14.5); Segmented Neutrophils % 89.9 %; White Blood Count 18.2 K/mcL (4.3-11.1)
[2021-04-12 03:59] LABS: BUN/Creatinine Ratio 30 (6-26); Blood Urea Nitrogen 32 mg/dL (6-20); Calcium 8.7 mg/dL (8.6-10.3); Carbon Dioxide 27 mEq/L (23-29); Chloride 93 mEq/L (98-107); Glucose 146 mg/dL (70-105); Osmolality,Calculated 282 (280-300); Potassium 3.8 mEq/L (3.5-5.1); Sodium 131 mEq/L (136-145); eGFR For African Americans > 60 (> 60); eGFR For Non-African Americans 55 (> 60)
[2021-04-12 04:02] LABS: Albumin/Globulin Ratio 0.9 (1.1-2.2); Bilirubin,Direct 0.1 mg/dL (0.0-0.2); Bilirubin,Indirect 0.7 mg/dL (0.0-1.0); Bilirubin,Total 0.8 mg/dL (0.3-1.0); Globulin 3.5 g/dL (2.4-3.5); Phosphorous 3.4 mg/dL (2.7-4.5); Total Protein 6.5 g/dL (6.4-8.9)
[2021-04-12] MEDS: Cefepime HCl 2,000 MG in 0.9 % Sodium Chloride Mini Bag 100 ML IVPB SCH ×2 (06:12→16:35)
[2021-04-12] MEDS: Cholecalciferol (D-3) 1,000 UNIT (25MCG) TABLET PO SCH (07:44)
[2021-04-12] MEDS: BuPROPion XL (24 HR) 150 MG TABLET PO SCH (07:44)
[2021-04-12] MEDS: *HR* Enoxaparin 60 MG/0.6 ML SYRINGE SQ SCH ×2 (07:47→20:05)
[2021-04-12] MEDS: Insulin LISPRO 300 UNITS/3 ML VIAL SUBQ SCH ×4 (07:48→20:06)
[2021-04-12] MEDS: Pantoprazole 40 MG VIAL IVP SCH (07:48)
[2021-04-12] MEDS: Sennosides/Docusate Sodium TABLET PO SCH ×2 (16:35→20:06)
[2021-04-12] MEDS ORDERED: Ibuprofen 400 MG TABLET PO PRN (17:13)
[2021-04-12] MEDS: GuaiFENesin/Codeine Oral Soln 5 ML UDC PO PRN (20:05)
[2021-04-12] MEDS: tiZANidine 4 MG TABLET PO SCH (20:05)
[2021-04-13] MEDS: GuaiFENesin/Codeine Oral Soln 5 ML UDC PO PRN ×2 (02:09→20:29)
[2021-04-13 02:37] LABS: Basophils % 0.2 %; Eosinophils # 0.1 K/mcL (0.0-0.6); Eosinophils % 0.5 %; Hemoglobin 12.3 g/dL (11.5-15.4); Lymphocytes # 1.1 K/mcL (0.6-4.6); Lymphocytes % 6.4 %; Mean Corpuscular HGB Conc 33.2 g/dL (31.6-35.5); Mean Corpuscular Hemoglobin 31.3 pg (28.0-33.3); Mean Corpuscular Volume 94.1 fL (83.0-100.0); Monocytes # 0.6 K/mcL (0.0-1.3); Monocytes % 3.5 %; Neutrophils # 14.8 K/mcL (1.6-8.9); Platelet Count 212 K/mcL (140-400); Red Blood Count 3.93 M/mcL (3.82-4.97); Red Cell Distribution Width 11.9 % (11.5-14.5); Segmented Neutrophils % 88.4 %; White Blood Count 16.8 K/mcL (4.3-11.1)
[2021-04-13] MEDS: Dexmedetomidine HCl 400 MCG/100 ML MLS IVC SCH ×5 (02:53→19:31)
[2021-04-13 02:54] LABS: VBG Ionized Calcium 1.09 mmol/L (1.15-1.35)
[2021-04-13 02:57] LABS: Calcium 8.5 mg/dL (8.6-10.3); Potassium 3.3 mEq/L (3.5-5.1)
[2021-04-13 03:01] LABS: Procalcitonin 0.51 ng/mL (0.00-0.15)
[2021-04-13 03:03] LABS: Albumin/Globulin Ratio 0.8 (1.1-2.2); Bilirubin,Direct 0.1 mg/dL (0.0-0.2); Bilirubin,Indirect 0.5 mg/dL (0.0-1.0); Bilirubin,Total 0.6 mg/dL (0.3-1.0); Globulin 3.7 g/dL (2.4-3.5); Magnesium 2.2 mg/dL (1.6-2.6); Total Protein 6.7 g/dL (6.4-8.9)
[2021-04-13] MEDS: Ipratropium/Albuterol Neb 3 ML IH SCH ×4 (03:37→21:40)
[2021-04-13] MEDS: Cefepime HCl 2,000 MG in 0.9 % Sodium Chloride Mini Bag 100 ML IVPB SCH ×2 (06:31→17:56)
[2021-04-13] MEDS: Pantoprazole 40 MG VIAL IVP SCH (08:06)
[2021-04-13] MEDS: *HR* Enoxaparin 60 MG/0.6 ML SYRINGE SQ SCH ×2 (08:06→20:24)
[2021-04-13] MEDS: BuPROPion XL (24 HR) 150 MG TABLET PO SCH (08:06)
[2021-04-13] MEDS: Sennosides/Docusate Sodium TABLET PO SCH ×2 (08:06→20:24)
[2021-04-13] MEDS: Cholecalciferol (D-3) 1,000 UNIT (25MCG) TABLET PO SCH (08:07)
[2021-04-13] MEDS: Insulin LISPRO 300 UNITS/3 ML VIAL SUBQ SCH ×4 (08:10→20:39)
[2021-04-13] MEDS ORDERED: metOLazone 5 MG TABLET PO ONE (10:00)
[2021-04-13] MEDS ORDERED: Furosemide 20 MG/2 ML VIAL IVP ONE (11:00)
[2021-04-13 11:49] LABS: Prealbumin 8.7 mg/dL (17.0-34.0)
[2021-04-13] MEDS: tiZANidine 4 MG TABLET PO SCH (20:24)
[2021-04-13] MEDS: *HR* LORazepam 0.5 MG TABLET PO PRN (22:18)
[2021-04-14] MEDS: Dexmedetomidine HCl 400 MCG/100 ML MLS IVC SCH ×7 (00:45→23:11)
[2021-04-14] MEDS: Ipratropium/Albuterol Neb 3 ML IH SCH ×4 (03:22→22:13)
[2021-04-14 04:39] LABS: VBG Ionized Calcium 1.14 mmol/L (1.15-1.35)
[2021-04-14 04:41] LABS: Basophils % 0.1 %; Eosinophils # 0.1 K/mcL (0.0-0.6); Eosinophils % 0.8 %; Hematocrit 33.8 % (35.3-44.9); Hemoglobin 11.7 g/dL (11.5-15.4); Lymphocytes # 0.9 K/mcL (0.6-4.6); Lymphocytes % 5.4 %; Mean Corpuscular HGB Conc 34.6 g/dL (31.6-35.5); Mean Corpuscular Hemoglobin 31.5 pg (28.0-33.3); Mean Corpuscular Volume 90.9 fL (83.0-100.0); Mean Platelet Volume 10.9 fL (9.4-12.4); Monocytes # 0.7 K/mcL (0.0-1.3); Monocytes % 4.4 %; Neutrophils # 14.7 K/mcL (1.6-8.9); Platelet Count 196 K/mcL (140-400); Red Blood Count 3.72 M/mcL (3.82-4.97); Red Cell Distribution Width 11.9 % (11.5-14.5); Segmented Neutrophils % 88.3 %; White Blood Count 16.6 K/mcL (4.3-11.1)
[2021-04-14 04:57] LABS: Albumin 2.8 g/dL (3.5-5.7); Albumin/Globulin Ratio 0.8 (1.1-2.2); Bilirubin,Direct 0.1 mg/dL (0.0-0.2); Bilirubin,Indirect 0.7 mg/dL (0.0-1.0); Bilirubin,Total 0.8 mg/dL (0.3-1.0); Calcium 8.5 mg/dL (8.6-10.3); Globulin 3.7 g/dL (2.4-3.5); Magnesium 2.1 mg/dL (1.6-2.6); Phosphorous 3.4 mg/dL (2.7-4.5); Potassium 3.5 mEq/L (3.5-5.1); Total Protein 6.5 g/dL (6.4-8.9)
[2021-04-14] MEDS: Cefepime HCl 2,000 MG in 0.9 % Sodium Chloride Mini Bag 100 ML IVPB SCH ×2 (08:47→17:39)
[2021-04-14] MEDS: Pantoprazole 40 MG VIAL IVP SCH (08:53)
[2021-04-14] MEDS: Insulin LISPRO 300 UNITS/3 ML VIAL SUBQ SCH ×4 (08:58→19:51)
[2021-04-14] MEDS ORDERED: Furosemide 20 MG/2 ML VIAL IVP SCH (09:00)
[2021-04-14] MEDS ORDERED: metOLazone 5 MG TABLET PO SCH (09:00)
[2021-04-14] MEDS: Cholecalciferol (D-3) 1,000 UNIT (25MCG) TABLET PO SCH (09:00)
[2021-04-14] MEDS: BuPROPion XL (24 HR) 150 MG TABLET PO SCH (09:00)
[2021-04-14] MEDS: Sennosides/Docusate Sodium TABLET PO SCH ×2 (09:00→19:52)
[2021-04-14] MEDS: *HR* Enoxaparin 60 MG/0.6 ML SYRINGE SQ SCH ×2 (09:06→21:04)
[2021-04-14] MEDS: Ondansetron 4 MG/2 ML VIAL IVP PRN ×2 (15:11→22:28)
[2021-04-14] MEDS: GuaiFENesin/Codeine Oral Soln 5 ML UDC PO PRN ×2 (15:14→21:04)
[2021-04-14] MEDS: Lactulose Oral Soln 20 GM/30 ML UDC PO SCH (21:04)
[2021-04-14] MEDS: tiZANidine 4 MG TABLET PO SCH (21:05)
[2021-04-14] MEDS: *HR* LORazepam 0.5 MG TABLET PO PRN (21:05)
[2021-04-15] MEDS: Ipratropium/Albuterol Neb 3 ML IH SCH ×4 (03:20→20:02)
[2021-04-15] MEDS: Dexmedetomidine HCl 400 MCG/100 ML MLS IVC SCH ×7 (03:56→23:26)
[2021-04-15 04:34] LABS: Basophils % 0.2 %; Eosinophils # 0.3 K/mcL (0.0-0.6); Hematocrit 33.4 % (35.3-44.9); Hemoglobin 11.6 g/dL (11.5-15.4); Immature Granulocytes % 0.7 % (0-4); Lymphocytes # 0.9 K/mcL (0.6-4.6); Lymphocytes % 6.1 %; Mean Corpuscular HGB Conc 34.7 g/dL (31.6-35.5); Mean Corpuscular Volume 92.3 fL (83.0-100.0); Mean Platelet Volume 10.3 fL (9.4-12.4); Monocytes # 0.6 K/mcL (0.0-1.3); Monocytes % 4.2 %; Neutrophils # 12.7 K/mcL (1.6-8.9); Platelet Count 191 K/mcL (140-400); Red Blood Count 3.62 M/mcL (3.82-4.97); Red Cell Distribution Width 12.2 % (11.5-14.5); Segmented Neutrophils % 86.8 %; White Blood Count 14.7 K/mcL (4.3-11.1)
[2021-04-15 05:06] LABS: Calcium 8.7 mg/dL (8.6-10.3); Potassium 3.6 mEq/L (3.5-5.1)
[2021-04-15] MEDS: Cefepime HCl 2,000 MG in 0.9 % Sodium Chloride Mini Bag 100 ML IVPB SCH ×2 (05:41→18:17)
[2021-04-15] MEDS: Insulin LISPRO 300 UNITS/3 ML VIAL SUBQ SCH ×4 (08:10→20:28)
[2021-04-15] MEDS: BuPROPion XL (24 HR) 150 MG TABLET PO SCH (08:46)
[2021-04-15] MEDS: Sennosides/Docusate Sodium TABLET PO SCH ×3 (08:46→19:45)
[2021-04-15] MEDS: *HR* Enoxaparin 60 MG/0.6 ML SYRINGE SQ SCH ×2 (08:47→19:14)
[2021-04-15] MEDS: Cholecalciferol (D-3) 1,000 UNIT (25MCG) TABLET PO SCH (08:48)
[2021-04-15] MEDS: Pantoprazole 40 MG VIAL IVP SCH (08:48)
[2021-04-15] MEDS: GuaiFENesin/Codeine Oral Soln 5 ML UDC PO PRN ×2 (11:08→19:25)
[2021-04-15] MEDS: Ondansetron 4 MG/2 ML VIAL IVP PRN ×2 (13:12→18:41)
[2021-04-15] MEDS: *HR* Metoprolol 5 MG/5 ML VIAL IVP PRN (18:31)
[2021-04-15] MEDS: Lactulose Oral Soln 20 GM/30 ML UDC PO SCH (19:13)
[2021-04-15] MEDS: tiZANidine 4 MG TABLET PO SCH (19:13)
[2021-04-15] MEDS: *HR* LORazepam 0.5 MG TABLET PO PRN (19:14)
[2021-04-16] MEDS: Dexmedetomidine HCl 400 MCG/100 ML MLS IVC SCH ×6 (03:20→21:35)
[2021-04-16] MEDS: Ipratropium/Albuterol Neb 3 ML IH SCH ×4 (03:23→19:32)
[2021-04-16 04:27] LABS: Basophils % 0.1 %; Eosinophils # 0.3 K/mcL (0.0-0.6); Eosinophils % 1.7 %; Hematocrit 32.5 % (35.3-44.9); Hemoglobin 11.1 g/dL (11.5-15.4); Immature Granulocytes % 0.8 % (0-4); Lymphocytes # 1.1 K/mcL (0.6-4.6); Lymphocytes % 6.7 %; Mean Corpuscular HGB Conc 34.2 g/dL (31.6-35.5); Mean Corpuscular Hemoglobin 31.7 pg (28.0-33.3); Mean Corpuscular Volume 92.9 fL (83.0-100.0); Mean Platelet Volume 10.8 fL (9.4-12.4); Monocytes # 0.7 K/mcL (0.0-1.3); Monocytes % 4.5 %; Platelet Count 182 K/mcL (140-400); Segmented Neutrophils % 86.2 %; White Blood Count 16.3 K/mcL (4.3-11.1)
[2021-04-16 04:42] LABS: Calcium 8.6 mg/dL (8.6-10.3); Potassium 3.5 mEq/L (3.5-5.1)
[2021-04-16] MEDS: Pantoprazole 40 MG VIAL IVP SCH (08:25)
[2021-04-16] MEDS: *HR* Enoxaparin 60 MG/0.6 ML SYRINGE SQ SCH ×2 (08:26→20:12)
[2021-04-16] MEDS: BuPROPion XL (24 HR) 150 MG TABLET PO SCH (08:26)
[2021-04-16] MEDS: Sennosides/Docusate Sodium TABLET PO SCH ×2 (08:26→20:12)
[2021-04-16] MEDS: Cholecalciferol (D-3) 1,000 UNIT (25MCG) TABLET PO SCH (08:26)
[2021-04-16] MEDS: Insulin LISPRO 300 UNITS/3 ML VIAL SUBQ SCH ×4 (08:45→20:12)
[2021-04-16] MEDS ORDERED: *HR* LORazepam 2 MG/ML VIAL ONE (11:30)
[2021-04-16] MEDS: Ampicillin/Sulbactam 3,000 MG in 0.9 % Sodium Chloride Mini Bag 100 ML IVPB SCH ×3 (11:35→23:45)
[2021-04-16] MEDS ORDERED: *HR* LORazepam 2 MG/ML VIAL IVP PRN (11:49)
[2021-04-16] MEDS: *HR* LORazepam 2 MG/ML VIAL IVP PRN ×2 (12:01→20:11)
[2021-04-16] MEDS ORDERED: Piperacillin/Tazobactam 3.375 GM in 0.9 % Sodium Chloride Mini Bag 100 ML IVPB SCH (16:00)
[2021-04-16] MEDS: tiZANidine 4 MG TABLET PO SCH (20:11)
[2021-04-16] MEDS: GuaiFENesin/Codeine Oral Soln 5 ML UDC PO PRN (20:11)
[2021-04-16] MEDS: Lactulose Oral Soln 20 GM/30 ML UDC PO SCH (20:12)
[2021-04-16] MEDS: *HR* Metoprolol 5 MG/5 ML VIAL IVP PRN (20:33)
[2021-04-17] MEDS: Dexmedetomidine HCl 400 MCG/100 ML MLS IVC SCH ×7 (01:11→22:35)
[2021-04-17] MEDS: Ipratropium/Albuterol Neb 3 ML IH SCH ×4 (03:31→22:01)
[2021-04-17 03:46] LABS: Basophils % 0.2 %; Eosinophils # 0.4 K/mcL (0.0-0.6); Eosinophils % 2.9 %; Hematocrit 30.2 % (35.3-44.9); Hemoglobin 10.5 g/dL (11.5-15.4); Immature Granulocytes % 0.6 % (0-4); Lymphocytes # 1.1 K/mcL (0.6-4.6); Lymphocytes % 7.8 %; Mean Corpuscular HGB Conc 34.8 g/dL (31.6-35.5); Mean Corpuscular Hemoglobin 32.1 pg (28.0-33.3); Mean Corpuscular Volume 92.4 fL (83.0-100.0); Mean Platelet Volume 10.8 fL (9.4-12.4); Monocytes # 0.6 K/mcL (0.0-1.3); Neutrophils # 11.9 K/mcL (1.6-8.9); Platelet Count 177 K/mcL (140-400); Red Blood Count 3.27 M/mcL (3.82-4.97); Red Cell Distribution Width 12.3 % (11.5-14.5); Segmented Neutrophils % 84.5 %; White Blood Count 14.1 K/mcL (4.3-11.1)
[2021-04-17 04:06] LABS: Calcium 8.5 mg/dL (8.6-10.3)
[2021-04-17] MEDS: Ampicillin/Sulbactam 3,000 MG in 0.9 % Sodium Chloride Mini Bag 100 ML IVPB SCH ×4 (05:14→23:13)
[2021-04-17] MEDS: Cholecalciferol (D-3) 1,000 UNIT (25MCG) TABLET PO SCH (09:05)
[2021-04-17] MEDS: *HR* Enoxaparin 60 MG/0.6 ML SYRINGE SQ SCH (09:05)
[2021-04-17] MEDS: BuPROPion XL (24 HR) 150 MG TABLET PO SCH (09:06)
[2021-04-17] MEDS: Insulin LISPRO 300 UNITS/3 ML VIAL SUBQ SCH ×4 (09:06→20:02)
[2021-04-17] MEDS: Sennosides/Docusate Sodium TABLET PO SCH ×2 (09:06→20:03)
[2021-04-17] MEDS: Pantoprazole 40 MG VIAL IVP SCH (09:06)
[2021-04-17] MEDS: *HR* LORazepam 2 MG/ML VIAL IVP PRN (11:00)
[2021-04-17] MEDS: Ondansetron 4 MG/2 ML VIAL IVP PRN (19:22)
[2021-04-17] MEDS: tiZANidine 4 MG TABLET PO SCH (20:01)
[2021-04-17] MEDS: Lactulose Oral Soln 20 GM/30 ML UDC PO SCH (20:03)
[2021-04-17 20:29] LABS: Bacteria,Urine Few per hpf (None-Few); Bilirubin,Urine Negative (Negative); Blood,Urine Trace (Negative); Clarity,Urine Turbid (Clear); Color,Urine Light-Yellow (Yellow); Glucose,Urine (UA) Normal (Normal); Hyaline Casts,Urine Few per lpf (None Seen); Ketones,Urine Negative (Negative); Leukocyte Esterase,Urine Negative (Negative); Mucus,Urine Few per lpf (None-Few); Nitrite,Urine Negative (Negative); Protein,Urine 30 mg/dL (Neg-Trace); RBC,Urine 0-3 per hpf (0-3); Specific Gravity,Urine 1.014 (1.010-1.025); Squamous Epithelial Cell,Urine Few per hpf (None-Few); Urobilinogen,Urine Normal (Normal); WBC,Urine 0-3 per hpf (0-3)
[2021-04-17 20:36] LABS: Protein/Creatinine Ratio,Urine 1.81 mg/mg (0.00-0.20); Sodium, Urine 37.1 mEq/L
[2021-04-18] MEDS: Dexmedetomidine HCl 400 MCG/100 ML MLS IVC SCH ×6 (01:45→21:09)
[2021-04-18] MEDS: Ipratropium/Albuterol Neb 3 ML IH SCH ×4 (03:55→20:36)
[2021-04-18 04:00] LABS: Basophils % 0.3 %; Eosinophils # 0.5 K/mcL (0.0-0.6); Eosinophils % 5.6 %; Hematocrit 29.5 % (35.3-44.9); Immature Granulocytes % 0.6 % (0-4); Lymphocytes # 0.9 K/mcL (0.6-4.6); Lymphocytes % 8.9 %; Mean Corpuscular HGB Conc 33.9 g/dL (31.6-35.5); Mean Corpuscular Hemoglobin 31.6 pg (28.0-33.3); Mean Corpuscular Volume 93.4 fL (83.0-100.0); Mean Platelet Volume 10.4 fL (9.4-12.4); Monocytes # 0.5 K/mcL (0.0-1.3); Monocytes % 4.7 %; Neutrophils # 7.7 K/mcL (1.6-8.9); Platelet Count 195 K/mcL (140-400); Red Blood Count 3.16 M/mcL (3.82-4.97); Red Cell Distribution Width 12.1 % (11.5-14.5); Segmented Neutrophils % 79.9 %; White Blood Count 9.7 K/mcL (4.3-11.1)
[2021-04-18 04:18] LABS: Magnesium 2.6 mg/dL (1.6-2.6); Phosphorous 3.9 mg/dL (2.7-4.5)
[2021-04-18 04:19] LABS: Calcium 8.5 mg/dL (8.6-10.3); Potassium 3.6 mEq/L (3.5-5.1)
[2021-04-18] MEDS: Ampicillin/Sulbactam 3,000 MG in 0.9 % Sodium Chloride Mini Bag 100 ML IVPB SCH ×3 (06:04→16:36)
[2021-04-18] MEDS: GuaiFENesin/Codeine Oral Soln 5 ML UDC PO PRN (06:06)
[2021-04-18] MEDS: Ondansetron 4 MG/2 ML VIAL IVP PRN ×2 (08:09→19:36)
[2021-04-18] MEDS: Insulin LISPRO 300 UNITS/3 ML VIAL SUBQ SCH ×3 (08:09→20:43)
[2021-04-18] MEDS: *HR* LORazepam 2 MG/ML VIAL IVP PRN ×3 (08:09→20:45)
[2021-04-18] MEDS: *HR* Enoxaparin 40 MG/0.4 ML SYRINGE SQ SCH (08:54)
[2021-04-18] MEDS: Pantoprazole 40 MG VIAL IVP SCH (08:55)
[2021-04-18] MEDS: Sennosides/Docusate Sodium TABLET PO SCH ×2 (08:55→20:44)
[2021-04-18] MEDS: BuPROPion XL (24 HR) 150 MG TABLET PO SCH (08:56)
[2021-04-18] MEDS: Cholecalciferol (D-3) 1,000 UNIT (25MCG) TABLET PO SCH (08:56)
[2021-04-18] MEDS: Benzonatate 100 MG CAPSULE PO PRN (10:11)
[2021-04-18] MEDS ORDERED: D10% in Water 500 ML IVC PRN (11:03)
[2021-04-18] MEDS: *HR* Metoprolol 5 MG/5 ML VIAL IVP PRN (14:19)
[2021-04-18] MEDS: Fat Emulsion 250 ML IVPB SCH (16:55)
[2021-04-18] MEDS ORDERED: Clinimix E 5%-15% SOLUTION 2,000 ML with MVI, adult with vitamin K 10 ML IVC SCH (17:00)
[2021-04-18] MEDS: tiZANidine 4 MG TABLET PO SCH (19:37)
[2021-04-18] MEDS: Lactulose Oral Soln 20 GM/30 ML UDC PO SCH (20:44)
[2021-04-19] MEDS: Ampicillin/Sulbactam 3,000 MG in 0.9 % Sodium Chloride Mini Bag 100 ML IVPB SCH ×5 (00:31→23:57)
[2021-04-19] MEDS: Dexmedetomidine HCl 400 MCG/100 ML MLS IVC SCH ×7 (00:31→21:10)
[2021-04-19] MEDS: Insulin LISPRO 300 UNITS/3 ML VIAL SUBQ SCH ×7 (00:32→23:56)
[2021-04-19] MEDS: *HR* LORazepam 2 MG/ML VIAL IVP PRN (01:50)
[2021-04-19 04:17] LABS: Calcium 8.6 mg/dL (8.6-10.3); Magnesium 2.6 mg/dL (1.6-2.6); Phosphorous 3.8 mg/dL (2.7-4.5); Potassium 3.3 mEq/L (3.5-5.1)
[2021-04-19] MEDS: Ipratropium/Albuterol Neb 3 ML IH SCH ×4 (04:21→21:48)
[2021-04-19] MEDS: Pantoprazole 40 MG VIAL IVP SCH (09:42)
[2021-04-19] MEDS: *HR* Enoxaparin 40 MG/0.4 ML SYRINGE SQ SCH (09:42)
[2021-04-19] MEDS: BuPROPion XL (24 HR) 150 MG TABLET PO SCH (09:58)
[2021-04-19] MEDS: Cholecalciferol (D-3) 1,000 UNIT (25MCG) TABLET PO SCH (09:58)
[2021-04-19] MEDS: Sennosides/Docusate Sodium TABLET PO SCH ×2 (09:58→20:29)
[2021-04-19 10:12] LABS: Basophils % 0.2 %; Eosinophils # 0.8 K/mcL (0.0-0.6); Eosinophils % 7.6 %; Hematocrit 31.6 % (35.3-44.9); Hemoglobin 10.4 g/dL (11.5-15.4); Immature Granulocytes % 0.6 % (0-4); Lymphocytes # 0.7 K/mcL (0.6-4.6); Lymphocytes % 6.9 %; Mean Corpuscular HGB Conc 32.9 g/dL (31.6-35.5); Monocytes # 0.4 K/mcL (0.0-1.3); Monocytes % 4.3 %; Platelet Count 184 K/mcL (140-400); Red Blood Count 3.36 M/mcL (3.82-4.97); Red Cell Distribution Width 12.5 % (11.5-14.5); Segmented Neutrophils % 80.4 %
[2021-04-19] MEDS: Norepinephrine 4 MG/254 ML IV.SOLN IVC SCH ×3 (15:21→23:55)
[2021-04-19] MEDS: Albumin Human 5% 12.5 GM/250 ML IV.SOLN IVC SCH (15:22)
[2021-04-19] MEDS: FentaNYL (PF) 1,000 MCG/100 ML IV.SOLN IVC SCH (15:22)
[2021-04-19] MEDS ORDERED: Clinimix E 5%-15% SOLUTION 2,000 ML with MVI, adult with vitamin K 10 ML IVC SCH (17:00)
[2021-04-19] MEDS ORDERED: Acetaminophen IV 500 MG/50 ML BAG IVPB ONE (17:34)
[2021-04-19] MEDS: Ondansetron 4 MG/2 ML VIAL IVP PRN (17:39)
[2021-04-19] MEDS: tiZANidine 4 MG TABLET PO SCH (20:18)
[2021-04-19] MEDS: Lactulose Oral Soln 20 GM/30 ML UDC PO SCH (20:29)
[2021-04-20] MEDS: Dexmedetomidine HCl 400 MCG/100 ML MLS IVC SCH ×6 (01:00→20:51)
[2021-04-20] MEDS: Ipratropium/Albuterol Neb 3 ML IH SCH ×4 (03:53→22:37)
[2021-04-20] MEDS: FentaNYL (PF) 1,000 MCG/100 ML IV.SOLN IVC SCH (04:14)
[2021-04-20] MEDS: Insulin LISPRO 300 UNITS/3 ML VIAL SUBQ SCH ×5 (04:14→21:02)
[2021-04-20 04:45] LABS: Basophils % 0.2 %; Eosinophils # 0.9 K/mcL (0.0-0.6); Hematocrit 30.1 % (35.3-44.9); Hemoglobin 10.2 g/dL (11.5-15.4); Immature Granulocytes % 0.5 % (0-4); Lymphocytes % 10.4 %; Mean Corpuscular HGB Conc 33.9 g/dL (31.6-35.5); Mean Corpuscular Hemoglobin 31.9 pg (28.0-33.3); Mean Corpuscular Volume 94.1 fL (83.0-100.0); Mean Platelet Volume 10.2 fL (9.4-12.4); Monocytes # 0.5 K/mcL (0.0-1.3); Monocytes % 4.9 %; Neutrophils # 7.1 K/mcL (1.6-8.9); Platelet Count 208 K/mcL (140-400); Red Cell Distribution Width 12.4 % (11.5-14.5); White Blood Count 9.5 K/mcL (4.3-11.1)
[2021-04-20] MEDS: Ampicillin/Sulbactam 3,000 MG in 0.9 % Sodium Chloride Mini Bag 100 ML IVPB SCH ×3 (05:00→18:15)
[2021-04-20 05:23] LABS: Calcium 8.6 mg/dL (8.6-10.3); Magnesium 2.3 mg/dL (1.6-2.6); Phosphorous 2.7 mg/dL (2.7-4.5); Potassium 3.6 mEq/L (3.5-5.1)
[2021-04-20] MEDS: Norepinephrine 4 MG/254 ML IV.SOLN IVC SCH ×2 (08:52→18:18)
[2021-04-20] MEDS: Cholecalciferol (D-3) 1,000 UNIT (25MCG) TABLET PO SCH (08:52)
[2021-04-20] MEDS: BuPROPion XL (24 HR) 150 MG TABLET PO SCH (08:52)
[2021-04-20] MEDS: Sennosides/Docusate Sodium TABLET PO SCH ×2 (08:52→21:04)
[2021-04-20] MEDS: Pantoprazole 40 MG VIAL IVP SCH (09:57)
[2021-04-20] MEDS: *HR* Enoxaparin 40 MG/0.4 ML SYRINGE SQ SCH (09:58)
[2021-04-20] MEDS: Ondansetron 4 MG/2 ML VIAL IVP PRN ×3 (10:07→20:27)
[2021-04-20] MEDS: Acetaminophen IV 1,000 MG/100 ML BAG IVPB PRN (10:44)
[2021-04-20] MEDS ORDERED: Potassium Phosphate 44 MEQ in 0.9 % Sodium Chloride 250 ML IVPB ONE (13:43)
[2021-04-20] MEDS ORDERED: Clinimix E 5%-15% SOLUTION 2,000 ML with MVI, adult with vitamin K 10 ML IVC SCH (17:00)
[2021-04-20] MEDS: Fat Emulsion 250 ML IVPB SCH (17:07)
[2021-04-20] MEDS: tiZANidine 4 MG TABLET PO SCH (20:26)
[2021-04-20] MEDS: Morphine Sulfate 2 MG/ML SYRINGE IVP PRN (20:39)
[2021-04-20] MEDS: Lactulose Oral Soln 20 GM/30 ML UDC PO SCH (21:03)
[2021-04-20] MEDS: *HR* LORazepam 2 MG/ML VIAL IVP PRN (21:13)
[2021-04-21] MEDS: Dexmedetomidine HCl 400 MCG/100 ML MLS IVC SCH ×6 (00:51→23:09)
[2021-04-21] MEDS: Ampicillin/Sulbactam 3,000 MG in 0.9 % Sodium Chloride Mini Bag 100 ML IVPB SCH ×5 (00:52→23:10)
[2021-04-21] MEDS: Insulin LISPRO 300 UNITS/3 ML VIAL SUBQ SCH ×7 (00:54→23:10)
[2021-04-21] MEDS: Ipratropium/Albuterol Neb 3 ML IH SCH ×4 (03:38→21:59)
[2021-04-21 04:02] LABS: VBG Ionized Calcium 1.22 mmol/L (1.15-1.35)
[2021-04-21] MEDS: Acetaminophen IV 1,000 MG/100 ML BAG IVPB PRN ×2 (04:14→10:14)
[2021-04-21 04:21] LABS: BUN/Creatinine Ratio 33 (6-26); Blood Urea Nitrogen 32 mg/dL (6-20); Calcium 8.7 mg/dL (8.6-10.3); Carbon Dioxide 34 mEq/L (23-29); Chloride 99 mEq/L (98-107); Glucose 141 mg/dL (70-105); Osmolality,Calculated 295 (280-300); Phosphorous 3.7 mg/dL (2.7-4.5); Potassium 3.8 mEq/L (3.5-5.1); Sodium 138 mEq/L (136-145); eGFR For African Americans > 60 (> 60); eGFR For Non-African Americans > 60 (> 60)
[2021-04-21] MEDS: Ondansetron 4 MG/2 ML VIAL IVP PRN ×2 (08:53→14:55)
[2021-04-21] MEDS: *HR* Enoxaparin 40 MG/0.4 ML SYRINGE SQ SCH (09:04)
[2021-04-21] MEDS: Pantoprazole 40 MG VIAL IVP SCH (09:05)
[2021-04-21] MEDS ORDERED: Furosemide 20 MG/2 ML VIAL IVP ONE (10:03)
[2021-04-21] MEDS: Morphine Sulfate 2 MG/ML SYRINGE IVP PRN ×2 (12:20→16:42)
[2021-04-21] MEDS: Cholecalciferol (D-3) 1,000 UNIT (25MCG) TABLET PO SCH (12:21)
[2021-04-21] MEDS: BuPROPion XL (24 HR) 150 MG TABLET PO SCH (12:21)
[2021-04-21] MEDS: Sennosides/Docusate Sodium TABLET PO SCH ×2 (12:21→20:13)
[2021-04-21] MEDS: Norepinephrine 4 MG/254 ML IV.SOLN IVC SCH ×4 (12:24→22:40)
[2021-04-21] MEDS: FentaNYL (PF) 1,000 MCG/100 ML IV.SOLN IVC SCH ×2 (12:24→19:20)
[2021-04-21] MEDS: *HR* Metoprolol 5 MG/5 ML VIAL IVP PRN ×2 (14:12→20:12)
[2021-04-21] MEDS: *HR* LORazepam 2 MG/ML VIAL IVP PRN (14:56)
[2021-04-21] MEDS ORDERED: Clinimix E 5%-20% SOLUTION 2,000 ML with MVI, adult with vitamin K 10 ML IVC SCH (17:00)
[2021-04-21] MEDS ORDERED: SUMAtriptan succinate 25 MG TABLET PO ONE (18:04)
[2021-04-21] MEDS: tiZANidine 4 MG TABLET PO SCH (20:12)
[2021-04-21] MEDS: Lactulose Oral Soln 20 GM/30 ML UDC PO SCH (20:12)
[2021-04-22] MEDS: Insulin LISPRO 300 UNITS/3 ML VIAL SUBQ SCH ×6 (03:38→23:24)
[2021-04-22 03:44] LABS: VBG Ionized Calcium 1.23 mmol/L (1.15-1.35)
[2021-04-22] MEDS: Ipratropium/Albuterol Neb 3 ML IH SCH ×4 (03:53→21:59)
[2021-04-22 03:57] LABS: BUN/Creatinine Ratio 24 (6-26); Blood Urea Nitrogen 20 mg/dL (6-20); Calcium 8.9 mg/dL (8.6-10.3); Carbon Dioxide 38 mEq/L (23-29); Chloride 99 mEq/L (98-107); Glucose 176 mg/dL (70-105); Magnesium 1.7 mg/dL (1.6-2.6); Osmolality,Calculated 297 (280-300); Phosphorous 2.8 mg/dL (2.7-4.5); Sodium 140 mEq/L (136-145); eGFR For African Americans > 60 (> 60); eGFR For Non-African Americans > 60 (> 60)
[2021-04-22] MEDS: Dexmedetomidine HCl 400 MCG/100 ML MLS IVC SCH ×5 (04:16→22:23)
[2021-04-22 04:31] LABS: Basophils % 0.4 %; Eosinophils # 0.9 K/mcL (0.0-0.6); Eosinophils % 9.8 %; Hematocrit 32.6 % (35.3-44.9); Hemoglobin 10.1 g/dL (11.5-15.4); Immature Granulocytes % 1.6 % (0-4); Lymphocytes # 1.2 K/mcL (0.6-4.6); Lymphocytes % 12.4 %; Mean Corpuscular Hemoglobin 30.7 pg (28.0-33.3); Mean Corpuscular Volume 99.1 fL (83.0-100.0); Mean Platelet Volume 10.1 fL (9.4-12.4); Monocytes # 0.7 K/mcL (0.0-1.3); Monocytes % 7.8 %; Neutrophils # 6.3 K/mcL (1.6-8.9); Platelet Count 247 K/mcL (140-400); Red Blood Count 3.29 M/mcL (3.82-4.97); Red Cell Distribution Width 12.9 % (11.5-14.5); White Blood Count 9.3 K/mcL (4.3-11.1)
[2021-04-22] MEDS: Ondansetron 4 MG/2 ML VIAL IVP PRN ×3 (04:31→21:47)
[2021-04-22] MEDS: Acetaminophen IV 1,000 MG/100 ML BAG IVPB PRN ×2 (04:32→12:39)
[2021-04-22] MEDS: Ampicillin/Sulbactam 3,000 MG in 0.9 % Sodium Chloride Mini Bag 100 ML IVPB SCH ×3 (04:50→17:39)
[2021-04-22] MEDS: Cholecalciferol (D-3) 1,000 UNIT (25MCG) TABLET PO SCH (08:31)
[2021-04-22] MEDS: Pantoprazole 40 MG VIAL IVP SCH (08:31)
[2021-04-22] MEDS: *HR* Enoxaparin 40 MG/0.4 ML SYRINGE SQ SCH (08:32)
[2021-04-22] MEDS: BuPROPion XL (24 HR) 150 MG TABLET PO SCH (08:33)
[2021-04-22] MEDS: Sennosides/Docusate Sodium TABLET PO SCH ×2 (08:33→20:34)
[2021-04-22] MEDS: Morphine Sulfate 2 MG/ML SYRINGE IVP PRN ×2 (11:30→16:10)
[2021-04-22] MEDS: Norepinephrine 4 MG/254 ML IV.SOLN IVC SCH ×2 (13:16→20:33)
[2021-04-22] MEDS ORDERED: Ondansetron 4 MG/2 ML VIAL IVP ONE (15:40)
[2021-04-22] MEDS ORDERED: Furosemide 40 MG/4 ML VIAL IVP ONE (15:43)
[2021-04-22] MEDS: Fat Emulsion 250 ML IVPB SCH (16:24)
[2021-04-22] MEDS ORDERED: Clinimix E 5%-20% SOLUTION 2,000 ML with MVI, adult with vitamin K 10 ML IVC SCH (17:00)
[2021-04-22] MEDS: FentaNYL (PF) 1,000 MCG/100 ML IV.SOLN IVC SCH (17:33)
[2021-04-22] MEDS: *HR* Metoprolol 5 MG/5 ML VIAL IVP PRN ×2 (18:28→22:21)
[2021-04-22 20:06] LABS: Bilirubin,Urine Negative (Negative); Blood,Urine Negative (Negative); Clarity,Urine Clear (Clear); Color,Urine Colorless (Yellow); Glucose,Urine (UA) Normal (Normal); Ketones,Urine Negative (Negative); Leukocyte Esterase,Urine Negative (Negative); Nitrite,Urine Negative (Negative); Protein,Urine Negative (Neg-Trace); Specific Gravity,Urine 1.012 (1.010-1.025); Urobilinogen,Urine Normal (Normal)
[2021-04-22] MEDS: tiZANidine 4 MG TABLET PO SCH (20:32)
[2021-04-22] MEDS: Lactulose Oral Soln 20 GM/30 ML UDC PO SCH (20:34)
[2021-04-22] MEDS: *HR* LORazepam 2 MG/ML VIAL IVP PRN (21:47)
[2021-04-22] MEDS: Cefepime HCl 2,000 MG in 0.9 % Sodium Chloride Mini Bag 100 ML IVPB SCH (23:23)
[2021-04-23] MEDS: Insulin LISPRO 300 UNITS/3 ML VIAL SUBQ SCH ×6 (03:58→22:55)
[2021-04-23] MEDS: Norepinephrine 4 MG/254 ML IV.SOLN IVC SCH ×3 (03:59→21:27)
[2021-04-23 04:11] LABS: VBG Ionized Calcium 1.18 mmol/L (1.15-1.35)
[2021-04-23] MEDS: Dexmedetomidine HCl 400 MCG/100 ML MLS IVC SCH ×5 (04:16→23:42)
[2021-04-23 04:25] LABS: BUN/Creatinine Ratio 22 (6-26); Blood Urea Nitrogen 17 mg/dL (6-20); Calcium 8.9 mg/dL (8.6-10.3); Carbon Dioxide 42 mEq/L (23-29); Chloride 95 mEq/L (98-107); Glucose 165 mg/dL (70-105); Magnesium 1.4 mg/dL (1.6-2.6); Osmolality,Calculated 295 (280-300); Phosphorous 3.5 mg/dL (2.7-4.5); Sodium 140 mEq/L (136-145); eGFR For African Americans > 60 (> 60); eGFR For Non-African Americans > 60 (> 60)
[2021-04-23 04:31] LABS: Basophils # 0.1 K/mcL (0.0-0.2); Basophils % 0.6 %; Eosinophils % 9.2 %; Hematocrit 34.3 % (35.3-44.9); Hemoglobin 10.4 g/dL (11.5-15.4); Immature Granulocytes % 1.9 % (0-4); Lymphocytes # 1.6 K/mcL (0.6-4.6); Lymphocytes % 14.6 %; Mean Corpuscular HGB Conc 30.3 g/dL (31.6-35.5); Mean Corpuscular Hemoglobin 30.6 pg (28.0-33.3); Mean Platelet Volume 9.9 fL (9.4-12.4); Monocytes # 0.9 K/mcL (0.0-1.3); Monocytes % 8.1 %; Neutrophils # 7.2 K/mcL (1.6-8.9); Platelet Count 274 K/mcL (140-400); Red Cell Distribution Width 12.7 % (11.5-14.5); Segmented Neutrophils % 65.6 %; White Blood Count 10.9 K/mcL (4.3-11.1)
[2021-04-23 04:34] LABS: Mean Corpuscular Volume 100.9 fL (83.0-100.0)
[2021-04-23 04:56] LABS: Alpha 2 Globulin (PEP) 1.36 g/dL (0.48-1.05); Beta Globulin (PEP) 0.61 g/dL (0.48-1.10)
[2021-04-23] MEDS: Ipratropium/Albuterol Neb 3 ML IH SCH ×3 (07:26→23:10)
[2021-04-23] MEDS ORDERED: Furosemide 40 MG/4 ML VIAL IVP ONE (08:14)
[2021-04-23] MEDS: Acetaminophen IV 1,000 MG/100 ML BAG IVPB PRN (08:22)
[2021-04-23] MEDS: Ondansetron 4 MG/2 ML VIAL IVP PRN ×2 (08:28→15:49)
[2021-04-23] MEDS: Pantoprazole 40 MG VIAL IVP SCH (08:28)
[2021-04-23] MEDS: Cefepime HCl 2,000 MG in 0.9 % Sodium Chloride Mini Bag 100 ML IVPB SCH ×3 (08:28→22:54)
[2021-04-23] MEDS: *HR* LORazepam 2 MG/ML VIAL IVP PRN ×2 (08:29→15:48)
[2021-04-23] MEDS: *HR* Enoxaparin 100 MG/ML SYRINGE SQ SCH ×2 (08:57→20:26)
[2021-04-23] MEDS: Cholecalciferol (D-3) 1,000 UNIT (25MCG) TABLET PO SCH (08:58)
[2021-04-23] MEDS: Sennosides/Docusate Sodium TABLET PO SCH ×2 (11:22→20:27)
[2021-04-23] MEDS: BuPROPion XL (24 HR) 150 MG TABLET PO SCH (11:22)
[2021-04-23] MEDS: Morphine Sulfate 2 MG/ML SYRINGE IVP PRN ×3 (11:27→23:11)
[2021-04-23] MEDS: *HR* Metoprolol 5 MG/5 ML VIAL IVP PRN ×2 (11:27→21:16)
[2021-04-23] MEDS: FentaNYL (PF) 1,000 MCG/100 ML IV.SOLN IVC SCH (14:19)
[2021-04-23] MEDS ORDERED: Clinimix E 5%-20% SOLUTION 2,000 ML with MVI, adult with vitamin K 10 ML IVC SCH (17:00)
[2021-04-23] MEDS: tiZANidine 4 MG TABLET PO SCH (20:26)
[2021-04-23] MEDS: Lactulose Oral Soln 20 GM/30 ML UDC PO SCH (20:27)
[2021-04-24] MEDS: *HR* Metoprolol 5 MG/5 ML VIAL IVP PRN ×2 (02:45→14:42)
[2021-04-24] MEDS: Dexmedetomidine HCl 400 MCG/100 ML MLS IVC SCH ×3 (04:13→17:38)
[2021-04-24] MEDS: Insulin LISPRO 300 UNITS/3 ML VIAL SUBQ SCH ×4 (04:47→17:46)
[2021-04-24 04:56] LABS: Basophils # 0.1 K/mcL (0.0-0.2); Basophils % 0.4 %; Eosinophils # 0.8 K/mcL (0.0-0.6); Eosinophils % 6.5 %; Hematocrit 33.5 % (35.3-44.9); Hemoglobin 10.2 g/dL (11.5-15.4); Immature Granulocytes % 1.3 % (0-4); Lymphocytes # 1.2 K/mcL (0.6-4.6); Lymphocytes % 10.1 %; Mean Corpuscular HGB Conc 30.4 g/dL (31.6-35.5); Mean Corpuscular Volume 101.8 fL (83.0-100.0); Mean Platelet Volume 9.9 fL (9.4-12.4); Monocytes # 1.1 K/mcL (0.0-1.3); Monocytes % 9.1 %; Neutrophils # 8.7 K/mcL (1.6-8.9); Platelet Count 308 K/mcL (140-400); Red Blood Count 3.29 M/mcL (3.82-4.97); Red Cell Distribution Width 12.6 % (11.5-14.5); Segmented Neutrophils % 72.6 %
[2021-04-24 05:06] LABS: VBG Ionized Calcium 1.34 mmol/L (1.15-1.35)
[2021-04-24] MEDS: Norepinephrine 4 MG/254 ML IV.SOLN IVC SCH (05:08)
[2021-04-24] MEDS: Morphine Sulfate 2 MG/ML SYRINGE IVP PRN (05:31)
[2021-04-24 05:33] LABS: BUN/Creatinine Ratio 27 (6-26); Blood Urea Nitrogen 19 mg/dL (6-20); Carbon Dioxide > 45 mEq/L (23-29); Chloride 91 mEq/L (98-107); Glucose 195 mg/dL (70-105); Magnesium 1.7 mg/dL (1.6-2.6); Osmolality,Calculated 296 (280-300); Potassium 4.5 mEq/L (3.5-5.1); Sodium 139 mEq/L (136-145); eGFR For African Americans > 60 (> 60); eGFR For Non-African Americans > 60 (> 60)
[2021-04-24 06:55] LABS: IFE Reflexed IFE Done; Immunoglobulin A 234 mg/dL (68-408); Immunoglobulin G 1307 mg/dL (768-1632); Immunoglobulin M 122 mg/dL (35-263)
[2021-04-24] MEDS: *HR* Enoxaparin 100 MG/ML SYRINGE SQ SCH ×2 (08:32→21:41)
[2021-04-24] MEDS: Pantoprazole 40 MG VIAL IVP SCH (08:33)
[2021-04-24] MEDS: Cefepime HCl 2,000 MG in 0.9 % Sodium Chloride Mini Bag 100 ML IVPB SCH ×3 (08:33→23:50)
[2021-04-24] MEDS: Sennosides/Docusate Sodium TABLET PO SCH (08:45)
[2021-04-24] MEDS: Cholecalciferol (D-3) 1,000 UNIT (25MCG) TABLET PO SCH (08:45)
[2021-04-24] MEDS: BuPROPion XL (24 HR) 150 MG TABLET PO SCH (08:46)
[2021-04-24] MEDS ORDERED: *HR* LORazepam 2 MG/ML VIAL IVP PRN (12:37)
[2021-04-24] MEDS ORDERED: tiZANidine 4 MG TABLET PO PRN (12:37)
[2021-04-24] MEDS: Ondansetron 4 MG/2 ML VIAL IVP PRN (14:42)
[2021-04-24 14:56] LABS: VBG PH 7.34 pH Units (7.32-7.42)
[2021-04-24] MEDS ORDERED: Clinimix E 5%-20% SOLUTION 2,000 ML with MVI, adult with vitamin K 10 ML IVC SCH ×2 (17:00→18:44)
[2021-04-24] MEDS ORDERED: D10% in Water 500 ML IVC PRN (18:44)
[2021-04-24] MEDS ORDERED: Dextrose Gel 15 GM/37.5 ML TUBE PO PRN ×2 (18:44)
[2021-04-24] MEDS ORDERED: *HR* Dextrose 50 % in Water (Syg) 50 ML SYRINGE IVP PRN (18:44)
[2021-04-24] MEDS ORDERED: Naloxone 0.4 MG/ML INJ IVP PRN (18:44)
[2021-04-24] MEDS ORDERED: D5% in Water 1,000 ML IVC PRN (18:44)
[2021-04-24] MEDS: Acetaminophen 325 MG TABLET PO PRN (21:30)
[2021-04-24] MEDS: tiZANidine 4 MG TABLET PO PRN (21:31)
[2021-04-24] MEDS ORDERED: *HR* Metoprolol 5 MG/5 ML VIAL IVP ONE (23:36)
[2021-04-25] MEDS: Lactulose Oral Soln 20 GM/30 ML UDC PO SCH ×2 (00:58→21:01)
[2021-04-25] MEDS: Sennosides/Docusate Sodium TABLET PO SCH ×3 (00:59→19:35)
[2021-04-25] MEDS: Insulin LISPRO 300 UNITS/3 ML VIAL SUBQ SCH ×7 (01:08→19:37)
[2021-04-25 04:59] LABS: Basophils # 0.1 K/mcL (0.0-0.2); Basophils % 0.4 %; Eosinophils # 0.5 K/mcL (0.0-0.6); Eosinophils % 4.5 %; Hematocrit 32.1 % (35.3-44.9); Hemoglobin 9.9 g/dL (11.5-15.4); Immature Granulocytes % 1.1 % (0-4); Lymphocytes # 1.4 K/mcL (0.6-4.6); Lymphocytes % 12.1 %; Mean Corpuscular HGB Conc 30.8 g/dL (31.6-35.5); Mean Corpuscular Hemoglobin 31.3 pg (28.0-33.3); Mean Corpuscular Volume 101.6 fL (83.0-100.0); Mean Platelet Volume 10.1 fL (9.4-12.4); Monocytes # 1.2 K/mcL (0.0-1.3); Monocytes % 10.3 %; Neutrophils # 8.2 K/mcL (1.6-8.9); Platelet Count 391 K/mcL (140-400); Red Blood Count 3.16 M/mcL (3.82-4.97); Red Cell Distribution Width 12.5 % (11.5-14.5); Segmented Neutrophils % 71.6 %; White Blood Count 11.5 K/mcL (4.3-11.1)
[2021-04-25 05:17] LABS: Magnesium 1.7 mg/dL (1.6-2.6); Phosphorous 1.9 mg/dL (2.7-4.5)
[2021-04-25 05:24] LABS: BUN/Creatinine Ratio 35 (6-26); Blood Urea Nitrogen 22 mg/dL (6-20); Calcium 9.3 mg/dL (8.6-10.3); Carbon Dioxide > 45 mEq/L (23-29); Chloride 94 mEq/L (98-107); Glucose 151 mg/dL (70-105); Osmolality,Calculated 296 (280-300); Potassium 3.9 mEq/L (3.5-5.1); Sodium 140 mEq/L (136-145); Triglycerides 114 mg/dL (< 150); eGFR For African Americans > 60 (> 60); eGFR For Non-African Americans > 60 (> 60)
[2021-04-25 05:25] LABS: VBG Ionized Calcium 1.21 mmol/L (1.15-1.35)
[2021-04-25] MEDS: Cefepime HCl 2,000 MG in 0.9 % Sodium Chloride Mini Bag 100 ML IVPB SCH ×2 (09:09→16:11)
[2021-04-25] MEDS: *HR* Enoxaparin 100 MG/ML SYRINGE SQ SCH ×2 (09:11→21:04)
[2021-04-25] MEDS: Pantoprazole 40 MG VIAL IVP SCH (09:14)
[2021-04-25] MEDS: Cholecalciferol (D-3) 1,000 UNIT (25MCG) TABLET PO SCH (09:14)
[2021-04-25] MEDS ORDERED: SUMAtriptan succinate 50 MG TABLET PO PRN (09:56)
[2021-04-25] MEDS: *HR* Metoprolol 5 MG/5 ML VIAL IVP PRN (12:06)
[2021-04-25] MEDS: Fat Emulsion 250 ML IVPB SCH (16:58)
[2021-04-25] MEDS ORDERED: Clinimix E 5%-15% SOLUTION 2,000 ML with MVI, adult with vitamin K 10 ML, ZN/CU/MN/SE... IVC SCH (17:00)
[2021-04-25] MEDS: *HR* LORazepam 2 MG/ML VIAL IVP PRN (21:05)
[2021-04-25] MEDS: Ondansetron 4 MG/2 ML VIAL IVP PRN (21:12)
[2021-04-25] MEDS: tiZANidine 4 MG TABLET PO PRN (21:37)
[2021-04-26] MEDS: Insulin LISPRO 300 UNITS/3 ML VIAL SUBQ SCH ×7 (00:23→23:58)
[2021-04-26] MEDS: Cefepime HCl 2,000 MG in 0.9 % Sodium Chloride Mini Bag 100 ML IVPB SCH ×2 (00:31→10:16)
[2021-04-26] MEDS ORDERED: Morphine Sulfate 2 MG/ML SYRINGE IVP ONE (01:21)
[2021-04-26 02:23] LABS: Alanine Aminotransferase 24 Units/L (7-52); Albumin 2.3 g/dL (3.5-5.7); Albumin/Globulin Ratio 0.4 (1.1-2.2); Alkaline Phosphatase 40 Units/L (34-104); Aspartate Amino Transferase 26 Units/L (13-39); BUN/Creatinine Ratio 26 (6-26); Bilirubin,Total 0.4 mg/dL (0.3-1.0); Blood Urea Nitrogen 22 mg/dL (6-20); Calcium 7.3 mg/dL (8.6-10.3); Carbon Dioxide 38 mEq/L (23-29); Chloride 113 mEq/L (98-107); Globulin 5.2 g/dL (2.4-3.5); Glucose 101 mg/dL (70-105); Magnesium 1.4 mg/dL (1.6-2.6); Osmolality,Calculated 293 (280-300); Phosphorous 2.6 mg/dL (2.7-4.5); Potassium 3.7 mEq/L (3.5-5.1); Sodium 140 mEq/L (136-145); Total Protein 7.5 g/dL (6.4-8.9); eGFR For African Americans > 60 (> 60); eGFR For Non-African Americans > 60 (> 60)
[2021-04-26 03:02] LABS: ABG Base Excess 15 mEq/L (-2 to 3); ABG HCO3 44 mEq/L (21-27); ABG Oxygen Saturation 55 % (95-98); ABG PCO2 75 mmHg (35-45); ABG PH 7.37 pH Units (7.32-7.45); ABG PO2 32 mmHg (85-104); ABG TCO2 46 mEq/L (20-26)
[2021-04-26] MEDS: Dexmedetomidine HCl 400 MCG/100 ML MLS IVC SCH ×6 (04:10→23:59)
[2021-04-26] MEDS: *HR* LORazepam 2 MG/ML VIAL IVP PRN ×2 (04:49→13:05)
[2021-04-26 05:03] LABS: ABG Base Excess 15 mEq/L (-2 to 3); ABG HCO3 43 mEq/L (21-27); ABG Oxygen Saturation 81 % (95-98); ABG PCO2 72 mmHg (35-45); ABG PH 7.39 pH Units (7.32-7.45); ABG PO2 48 mmHg (85-104); ABG TCO2 45 mEq/L (20-26)
[2021-04-26] MEDS: *HR* Enoxaparin 100 MG/ML SYRINGE SQ SCH ×2 (10:16→20:57)
[2021-04-26] MEDS: Cholecalciferol (D-3) 1,000 UNIT (25MCG) TABLET PO SCH (10:18)
[2021-04-26] MEDS: Sennosides/Docusate Sodium TABLET PO SCH ×2 (10:18→20:58)
[2021-04-26] MEDS: Pantoprazole 40 MG VIAL IVP SCH ×2 (10:19→17:13)
[2021-04-26] MEDS: levoFLOXacin 750 MG/150 ML 750 MG/150 ML BAG IVPB SCH (12:55)
[2021-04-26 13:20] LABS: Basophils % 0.4 %; Eosinophils # 0.8 K/mcL (0.0-0.6); Eosinophils % 7.1 %; Hematocrit 30.5 % (35.3-44.9); Hemoglobin 9.1 g/dL (11.5-15.4); Immature Granulocytes % 1.6 % (0-4); Lymphocytes # 1.4 K/mcL (0.6-4.6); Lymphocytes % 12.8 %; Mean Corpuscular HGB Conc 29.8 g/dL (31.6-35.5); Mean Corpuscular Hemoglobin 30.3 pg (28.0-33.3); Mean Corpuscular Volume 101.7 fL (83.0-100.0); Mean Platelet Volume 9.9 fL (9.4-12.4); Monocytes # 1.1 K/mcL (0.0-1.3); Monocytes % 10.1 %; Neutrophils # 7.2 K/mcL (1.6-8.9); Platelet Count 389 K/mcL (140-400); White Blood Count 10.6 K/mcL (4.3-11.1)
[2021-04-26] MEDS ORDERED: *HR* LORazepam 2 MG/ML VIAL IVP ONE (16:21)
[2021-04-26] MEDS ORDERED: Clinimix E 5%-15% SOLUTION 2,000 ML with MVI, adult with vitamin K 10 ML, ZN/CU/MN/SE... IVC SCH (17:00)
[2021-04-26] MEDS: Lactulose Oral Soln 20 GM/30 ML UDC PO SCH (21:11)
[2021-04-27] MEDS: *HR* LORazepam 2 MG/ML VIAL IVP PRN ×2 (00:49→21:16)
[2021-04-27] MEDS: Dexmedetomidine HCl 400 MCG/100 ML MLS IVC SCH ×5 (04:00→18:27)
[2021-04-27] MEDS: Pantoprazole 40 MG VIAL IVP SCH ×2 (05:05→17:53)
[2021-04-27 06:17] LABS: Alanine Aminotransferase 27 Units/L (7-52); Albumin 2.7 g/dL (3.5-5.7); Albumin/Globulin Ratio 0.8 (1.1-2.2); Alkaline Phosphatase 49 Units/L (34-104); Aspartate Amino Transferase 27 Units/L (13-39); BUN/Creatinine Ratio 41 (6-26); Bilirubin,Total 0.2 mg/dL (0.3-1.0); Blood Urea Nitrogen 28 mg/dL (6-20); Calcium 8.7 mg/dL (8.6-10.3); Carbon Dioxide 36 mEq/L (23-29); Chloride 101 mEq/L (98-107); Globulin 3.5 g/dL (2.4-3.5); Glucose 157 mg/dL (70-105); Magnesium 1.7 mg/dL (1.6-2.6); Osmolality,Calculated 289 (280-300); Phosphorous 2.9 mg/dL (2.7-4.5); Potassium 5.1 mEq/L (3.5-5.1); Sodium 135 mEq/L (136-145); Total Protein 6.2 g/dL (6.4-8.9); eGFR For African Americans > 60 (> 60); eGFR For Non-African Americans > 60 (> 60)
[2021-04-27] MEDS: Insulin LISPRO 300 UNITS/3 ML VIAL SUBQ SCH ×5 (06:33→20:12)
[2021-04-27] MEDS: levoFLOXacin 750 MG/150 ML 750 MG/150 ML BAG IVPB SCH (08:43)
[2021-04-27] MEDS: *HR* Enoxaparin 100 MG/ML SYRINGE SQ SCH ×2 (08:46→20:17)
[2021-04-27] MEDS: Sennosides/Docusate Sodium TABLET PO SCH ×2 (08:47→20:15)
[2021-04-27] MEDS: Cholecalciferol (D-3) 1,000 UNIT (25MCG) TABLET PO SCH (08:48)
[2021-04-27 10:01] LABS: Mixed Venous Blood pCO2 66 mmHg (44-46); Mixed Venous Blood pH 7.37 pH Units (7.34-7.36); Mixed Venous Blood pO2 49 mmHg (35-45)
[2021-04-27] MEDS: Ondansetron 4 MG/2 ML VIAL IVP PRN ×2 (15:49→22:26)
[2021-04-27] MEDS: Fat Emulsion 250 ML IVPB SCH (16:46)
[2021-04-27] MEDS ORDERED: Clinimix E 5%-15% SOLUTION 2,000 ML with MVI, adult with vitamin K 10 ML, ZN/CU/MN/SE... IVC SCH (17:00)
[2021-04-27] MEDS: tiZANidine 4 MG TABLET PO PRN (21:15)
[2021-04-27] MEDS: Lactulose Oral Soln 20 GM/30 ML UDC PO SCH (21:18)
[2021-04-28] MEDS: Insulin LISPRO 300 UNITS/3 ML VIAL SUBQ SCH ×6 (00:30→22:30)
[2021-04-28 04:02] LABS: ABG Base Excess 11 mEq/L (-2 to 3); ABG HCO3 38 mEq/L (21-27); ABG Oxygen Saturation 99 % (95-98); ABG PCO2 73 mmHg (35-45); ABG PH 7.33 pH Units (7.32-7.45); ABG PO2 131 mmHg (85-104); ABG TCO2 41 mEq/L (20-26)
[2021-04-28] MEDS: Pantoprazole 40 MG VIAL IVP SCH ×2 (05:26→16:33)
[2021-04-28] MEDS: Dexmedetomidine HCl 400 MCG/100 ML MLS IVC SCH ×4 (06:45→22:23)
[2021-04-28] MEDS: levoFLOXacin 750 MG/150 ML 750 MG/150 ML BAG IVPB SCH (08:41)
[2021-04-28] MEDS: *HR* Enoxaparin 100 MG/ML SYRINGE SQ SCH ×2 (08:41→22:19)
[2021-04-28] MEDS: *HR* LORazepam 2 MG/ML VIAL IVP PRN ×2 (08:42→22:22)
[2021-04-28] MEDS: Ondansetron 4 MG/2 ML VIAL IVP PRN ×2 (08:58→23:59)
[2021-04-28 09:38] LABS: Alanine Aminotransferase 31 Units/L (7-52); Albumin 2.7 g/dL (3.5-5.7); Albumin/Globulin Ratio 0.7 (1.1-2.2); Alkaline Phosphatase 53 Units/L (34-104); Aspartate Amino Transferase 23 Units/L (13-39); BUN/Creatinine Ratio 34 (6-26); Bilirubin,Total 0.2 mg/dL (0.3-1.0); Blood Urea Nitrogen 24 mg/dL (6-20); Calcium 8.8 mg/dL (8.6-10.3); Carbon Dioxide 37 mEq/L (23-29); Chloride 103 mEq/L (98-107); Globulin 3.7 g/dL (2.4-3.5); Glucose 141 mg/dL (70-105); Magnesium 1.7 mg/dL (1.6-2.6); Osmolality,Calculated 288 (280-300); Phosphorous 3.6 mg/dL (2.7-4.5); Potassium 4.6 mEq/L (3.5-5.1); Sodium 136 mEq/L (136-145); Total Protein 6.4 g/dL (6.4-8.9); eGFR For African Americans > 60 (> 60); eGFR For Non-African Americans > 60 (> 60)
[2021-04-28] MEDS: Sennosides/Docusate Sodium TABLET PO SCH ×2 (15:38→22:20)
[2021-04-28] MEDS: Cholecalciferol (D-3) 1,000 UNIT (25MCG) TABLET PO SCH (15:39)
[2021-04-28] MEDS ORDERED: Clinimix E 5%-15% SOLUTION 2,000 ML with MVI, adult with vitamin K 10 ML, ZN/CU/MN/SE... IVC SCH (17:00)
[2021-04-28] MEDS: GuaiFENesin/Codeine Oral Soln 5 ML UDC PO PRN ×2 (17:10→22:48)
[2021-04-28] MEDS: Lactulose Oral Soln 20 GM/30 ML UDC PO SCH (22:19)
[2021-04-28] MEDS: tiZANidine 4 MG TABLET PO PRN (22:22)
[2021-04-29] MEDS: Insulin LISPRO 300 UNITS/3 ML VIAL SUBQ SCH ×6 (00:08→20:22)
[2021-04-29] MEDS ORDERED: *HR* LORazepam 2 MG/ML VIAL IVP ONE (00:21)
[2021-04-29] MEDS: Dexmedetomidine HCl 400 MCG/100 ML MLS IVC SCH ×6 (01:11→23:30)
[2021-04-29] MEDS: Pantoprazole 40 MG VIAL IVP SCH ×2 (05:52→17:38)
[2021-04-29] MEDS: Cholecalciferol (D-3) 1,000 UNIT (25MCG) TABLET PO SCH (08:29)
[2021-04-29] MEDS: levoFLOXacin 750 MG/150 ML 750 MG/150 ML BAG IVPB SCH (08:29)
[2021-04-29] MEDS: Sennosides/Docusate Sodium TABLET PO SCH ×2 (08:31→20:23)
[2021-04-29] MEDS: *HR* Enoxaparin 100 MG/ML SYRINGE SQ SCH ×2 (08:34→20:22)
[2021-04-29 09:56] LABS: BUN/Creatinine Ratio 31 (6-26); Blood Urea Nitrogen 19 mg/dL (6-20); Calcium 8.7 mg/dL (8.6-10.3); Carbon Dioxide 35 mEq/L (23-29); Chloride 98 mEq/L (98-107); Glucose 248 mg/dL (70-105); Magnesium 1.6 mg/dL (1.6-2.6); Osmolality,Calculated 289 (280-300); Phosphorous 3.2 mg/dL (2.7-4.5); Potassium 4.6 mEq/L (3.5-5.1); Sodium 134 mEq/L (136-145); eGFR For African Americans > 60 (> 60); eGFR For Non-African Americans > 60 (> 60)
[2021-04-29] MEDS: Magic Mouthwash 10 ML UD Cup PO SCH ×2 (11:16→17:37)
[2021-04-29] MEDS: GuaiFENesin/Codeine Oral Soln 5 ML UDC PO PRN ×2 (12:45→23:31)
[2021-04-29] MEDS ORDERED: Clinimix E 5%-15% SOLUTION 2,000 ML with MVI, adult with vitamin K 10 ML, ZN/CU/MN/SE... IVC SCH (17:00)
[2021-04-29] MEDS: Fat Emulsion 250 ML IVPB SCH (17:37)
[2021-04-29] MEDS: tiZANidine 4 MG TABLET PO PRN (20:20)
[2021-04-29] MEDS: *HR* LORazepam 2 MG/ML VIAL IVP PRN (20:21)
[2021-04-29] MEDS: Lactulose Oral Soln 20 GM/30 ML UDC PO SCH (20:23)
[2021-04-30 03:01] LABS: ABG Base Excess 11 mEq/L (-2 to 3); ABG HCO3 37 mEq/L (21-27); ABG Oxygen Saturation 92 % (95-98); ABG PCO2 59 mmHg (35-45); ABG PH 7.41 pH Units (7.32-7.45); ABG PO2 65 mmHg (85-104); ABG TCO2 39 mEq/L (20-26)
[2021-04-30] MEDS: Ondansetron 4 MG/2 ML VIAL IVP PRN ×2 (03:16→12:16)
[2021-04-30] MEDS: Dexmedetomidine HCl 400 MCG/100 ML MLS IVC SCH ×6 (03:49→23:20)
[2021-04-30] MEDS: Insulin LISPRO 300 UNITS/3 ML VIAL SUBQ SCH ×5 (03:50→20:51)
[2021-04-30 04:16] LABS: BUN/Creatinine Ratio 33 (6-26); Blood Urea Nitrogen 20 mg/dL (6-20); Carbon Dioxide 34 mEq/L (23-29); Chloride 101 mEq/L (98-107); Glucose 152 mg/dL (70-105); Magnesium 1.7 mg/dL (1.6-2.6); Osmolality,Calculated 288 (280-300); Phosphorous 3.3 mg/dL (2.7-4.5); Potassium 4.2 mEq/L (3.5-5.1); Sodium 136 mEq/L (136-145); eGFR For African Americans > 60 (> 60); eGFR For Non-African Americans > 60 (> 60)
[2021-04-30] MEDS: Pantoprazole 40 MG VIAL IVP SCH ×2 (06:21→17:41)
[2021-04-30] MEDS: *HR* LORazepam 2 MG/ML VIAL IVP PRN ×2 (07:26→20:50)
[2021-04-30] MEDS: levoFLOXacin 750 MG/150 ML 750 MG/150 ML BAG IVPB SCH (07:26)
[2021-04-30] MEDS: Cholecalciferol (D-3) 1,000 UNIT (25MCG) TABLET PO SCH (07:27)
[2021-04-30] MEDS: *HR* Enoxaparin 100 MG/ML SYRINGE SQ SCH ×2 (07:27→20:49)
[2021-04-30] MEDS: Sennosides/Docusate Sodium TABLET PO SCH ×2 (07:27→20:52)
[2021-04-30] MEDS: Magic Mouthwash 10 ML UD Cup PO SCH ×3 (07:28→20:52)
[2021-04-30] MEDS ORDERED: Clinimix E 5%-15% SOLUTION 2,000 ML with MVI, adult with vitamin K 10 ML, ZN/CU/MN/SE... IVC SCH (17:00)
[2021-04-30] MEDS: Lactulose Oral Soln 20 GM/30 ML UDC PO SCH (20:52)
[2021-04-30] MEDS: tiZANidine 4 MG TABLET PO PRN (20:58)
[2021-04-30] MEDS: GuaiFENesin/Codeine Oral Soln 5 ML UDC PO PRN (21:38)
[2021-05-01] MEDS: Insulin LISPRO 300 UNITS/3 ML VIAL SUBQ SCH ×7 (02:42→22:54)
[2021-05-01] MEDS: Dexmedetomidine HCl 400 MCG/100 ML MLS IVC SCH ×3 (02:42→10:52)
[2021-05-01] MEDS: Pantoprazole 40 MG VIAL IVP SCH ×2 (05:18→17:02)
[2021-05-01] MEDS: *HR* LORazepam 2 MG/ML VIAL IVP PRN ×2 (05:18→17:47)
[2021-05-01 06:25] LABS: BUN/Creatinine Ratio 33 (6-26); Blood Urea Nitrogen 22 mg/dL (6-20); Calcium 9.1 mg/dL (8.6-10.3); Carbon Dioxide 36 mEq/L (23-29); Chloride 98 mEq/L (98-107); Glucose 130 mg/dL (70-105); Magnesium 1.8 mg/dL (1.6-2.6); Osmolality,Calculated 287 (280-300); Phosphorous 3.8 mg/dL (2.7-4.5); Potassium 4.4 mEq/L (3.5-5.1); Sodium 136 mEq/L (136-145); eGFR For African Americans > 60 (> 60); eGFR For Non-African Americans > 60 (> 60)
[2021-05-01] MEDS: GuaiFENesin/Codeine Oral Soln 5 ML UDC PO PRN (09:21)
[2021-05-01] MEDS: Cholecalciferol (D-3) 1,000 UNIT (25MCG) TABLET PO SCH (09:21)
[2021-05-01] MEDS: *HR* Enoxaparin 100 MG/ML SYRINGE SQ SCH ×2 (09:22→23:04)
[2021-05-01] MEDS: levoFLOXacin 750 MG/150 ML 750 MG/150 ML BAG IVPB SCH (09:23)
[2021-05-01] MEDS: Magic Mouthwash 10 ML UD Cup PO SCH ×3 (09:23→17:02)
[2021-05-01] MEDS: Sennosides/Docusate Sodium TABLET PO SCH ×2 (09:24→23:05)
[2021-05-01] MEDS: Ondansetron 4 MG/2 ML VIAL IVP PRN ×2 (14:56→23:09)
[2021-05-01] MEDS ORDERED: Clinimix E 5%-15% SOLUTION 2,000 ML with MVI, adult with vitamin K 10 ML, ZN/CU/MN/SE... IVC SCH (17:00)
[2021-05-01] MEDS: Acetaminophen 325 MG TABLET PO PRN (18:00)
[2021-05-01] MEDS: *HR* Metoprolol 5 MG/5 ML VIAL IVP PRN (19:20)
[2021-05-01] MEDS: Lactulose Oral Soln 20 GM/30 ML UDC PO SCH (23:04)
[2021-05-01] MEDS: tiZANidine 4 MG TABLET PO PRN (23:10)
[2021-05-01] MEDS ORDERED: *HR* Metoprolol 5 MG/5 ML VIAL IVP ONE (23:40)
[2021-05-01] MEDS ORDERED: *HR* LORazepam 0.5 MG TABLET PO ONE (23:42)
[2021-05-02] MEDS: Insulin LISPRO 300 UNITS/3 ML VIAL SUBQ SCH ×6 (01:03→20:13)
[2021-05-02] MEDS: GuaiFENesin/Codeine Oral Soln 5 ML UDC PO PRN ×3 (01:21→22:29)
[2021-05-02] MEDS: *HR* LORazepam 2 MG/ML VIAL IVP PRN (02:05)
[2021-05-02] MEDS: Pantoprazole 40 MG VIAL IVP SCH ×2 (06:05→16:24)
[2021-05-02 06:55] LABS: BUN/Creatinine Ratio 32 (6-26); Blood Urea Nitrogen 21 mg/dL (6-20); Carbon Dioxide 33 mEq/L (23-29); Chloride 101 mEq/L (98-107); Glucose 129 mg/dL (70-105); Magnesium 1.9 mg/dL (1.6-2.6); Osmolality,Calculated 291 (280-300); Phosphorous 3.3 mg/dL (2.7-4.5); Sodium 138 mEq/L (136-145); Triglycerides 141 mg/dL (< 150); eGFR For African Americans > 60 (> 60); eGFR For Non-African Americans > 60 (> 60)
[2021-05-02] MEDS ORDERED: Furosemide 40 MG/4 ML VIAL IVP ONE (08:25)
[2021-05-02] MEDS ORDERED: Clinimix E 5%-15% SOLUTION 2,000 ML with MVI, adult with vitamin K 10 ML, ZN/CU/MN/SE... IVC SCH (08:30)
[2021-05-02] MEDS: Cholecalciferol (D-3) 1,000 UNIT (25MCG) TABLET PO SCH (10:28)
[2021-05-02] MEDS: *HR* Enoxaparin 100 MG/ML SYRINGE SQ SCH ×2 (10:28→21:01)
[2021-05-02] MEDS: ALPRAZolam 0.5 MG TABLET PO SCH ×3 (10:29→21:00)
[2021-05-02] MEDS: Magic Mouthwash 10 ML UD Cup PO SCH ×3 (10:30→16:24)
[2021-05-02] MEDS: Sennosides/Docusate Sodium TABLET PO SCH ×2 (10:30→21:02)
[2021-05-02] MEDS: tiZANidine 4 MG TABLET PO PRN (21:01)
[2021-05-02] MEDS: Lactulose Oral Soln 20 GM/30 ML UDC PO SCH (21:02)
[2021-05-03] MEDS: Insulin LISPRO 300 UNITS/3 ML VIAL SUBQ SCH ×4 (00:28→12:24)
[2021-05-03] MEDS ORDERED: *HR* LORazepam 2 MG/ML VIAL IVP ONE (01:37)
[2021-05-03] MEDS: Ondansetron 4 MG/2 ML VIAL IVP PRN (05:32)
[2021-05-03] MEDS: Pantoprazole 40 MG VIAL IVP SCH (05:32)
[2021-05-03] MEDS: Acetaminophen 325 MG TABLET PO PRN (05:32)
[2021-05-03 07:34] VITALS: TEMP 98.1
[2021-05-03] MEDS: ALPRAZolam 0.5 MG TABLET PO SCH ×2 (07:35→16:18)
[2021-05-03] MEDS: *HR* Enoxaparin 100 MG/ML SYRINGE SQ SCH (07:35)
[2021-05-03] MEDS: Sennosides/Docusate Sodium TABLET PO SCH ×2 (07:35→07:42)
[2021-05-03] MEDS: Magic Mouthwash 10 ML UD Cup PO SCH ×2 (07:35→12:27)
[2021-05-03] MEDS: Cholecalciferol (D-3) 1,000 UNIT (25MCG) TABLET PO SCH (07:35)
[2021-05-03] MEDS ORDERED: Furosemide 40 MG TABLET PO SCH (09:00)
[2021-05-03 11:14] VITALS: BP 111/96; PULSE 105
[2021-05-03 12:39] VITALS: O2SAT 96
== END 2021-05-03 16:30 | disposition home or self-care (01) | DRG 871 ==
LOC: EMEROOARM 04:43 → 2NENU 13:06 → SUATTDRO 13:06 → 2NENU 15:30 → ICNU 04-02 11:59 → 2NNU 04-03 18:03 → ICNU 04-07 20:00 → 2NNU 04-23 18:13 → 3NENU 04-28 19:59
PROVIDERS: ADMIT Pharmacist; ATTEND Hospitalist